=== PATIENT | female | born 1985 | race Caucasian/White ===

== ENCOUNTER 2017-04-09 11:11 | Outpatient (CLI) | payer BC, OTHER ==
[~2017-04-09 11:11] MED LIST: BCPILLS PO
[2017-04-09] MEDS ORDERED: ACETAMINOPHEN/CODEINE 300/30MG TAB PO ONE (11:30)
[2017-04-09 12:10] LABS: BASO % 0.1 %; BASO ABS # 0.01 K/uL (0-0.2); COMPLETE YES; EOS % 0.5 %; HEMATOCRIT 34.7 % (37-47); IG% 0.3 %; LYMPH % 18.6 %; LYMPH ABS # 2.05 K/uL (1.2-3.4); MEAN CELL VOLUME 83.6 fL (80-100); MEAN CORPUSCULAR HEMOGLOBIN 28.2 pg (25-34); MEAN CORPUSCULAR HGB CONC 33.7 g/dl (32-36); MONO % 5.3 %; NEUT % 75.2 %; PLATELET COUNT 342 K/uL (130-400); RED BLOOD COUNT 4.15 M/uL (4.2-5.4)
[2017-04-09 12:40] LABS: ALT/SGPT 21 U/L (12-78); BLOOD UREA NITROGEN 5 mg/dl (7-18); BUN/CREATININE RATIO 9.8 (10-20); CALCIUM 8.9 mg/dl (8.5-10.1); CARBON DIOXIDE 20 mmol/L (21-32); CHLORIDE 108 mmol/L (98-107); CREATININE 0.53 mg/dl (0.60-1.20); GLUCOSE 97 mg/dl (70-99); POTASSIUM 3.7 mmol/L (3.5-5.1); SODIUM 139 mmol/L (136-145)
[2017-04-09 12:42] LABS: ALB/GLOB RATIO 0.6 (0.9-2); ALKALINE PHOSPHATASE 101 U/L (45-117); AST/SGOT 17 U/L (15-37)
[2017-04-09 13:27] LABS: URINE PROTIEN/CREAT RATIO 0.2 (0-0.2); URINE TOTAL PROTEIN 7.7 mg/dl (0-11.9)
--- NOTE | 2017-04-09 13:38 | Progress Note ---
Progress Note Date of Service Apr 09, 2017. Progress Note Outpatient Note 31 WF P0000 at 31 weeks seen in L&D for headache and elevated BP in office. Being treated for sinus infection currently with antibiotics. Seen here today with no contractions on monitor. FHT Cat 1. No RUQ pain and abdoment is soft and non-tender. No peripheral or facial edema. LABS Test 04/09/17 11:51 04/09/17 12:10 04/09/17 12:17 White Blood Count 11.00 Red Blood Count 4.15 Hemoglobin 11.7 Hematocrit 34.7 Mean Corpuscular Volume 83.6 Mean Corpuscular Hemoglobin 28.2 Mean Corpuscular Hemoglobin Concent 33.7 Platelet Count 342 Mean Platelet Volume 9.0 Neutrophils (%) (Auto) 75.2 Lymphocytes (%) (Auto) 18.6 Monocytes (%) (Auto) 5.3 Eosinophils (%) (Auto) 0.5 Basophils (%) (Auto) 0.1 Neutrophils # (Auto) 8.28 Lymphocytes # (Auto) 2.05 Monocytes # (Auto) 0.58 Eosinophils # (Auto) 0.05 Basophils # (Auto) 0.01 RDW Standard Deviation 39.7 RDW Coefficient of Variation 13.2 Immature Granulocyte % (Auto) 0.3 Immature Granulocyte # (Auto) 0.03 Sodium Level 139 Potassium Level 3.7 Chloride Level 108 Carbon Dioxide Level 20 Anion Gap 11.0 Blood Urea Nitrogen 5 Creatinine 0.53 Estimated GFR () 147.7 Estimated GFR (Non- 127.4 BUN/Creatinine Ratio 9.8 Random Glucose 97 Calcium Level 8.9 Total Bilirubin 0.2 Aspartate Amino Transferase (AST) 17 Alanine Aminotransferase (ALT) 21 Alkaline Phosphatase 101 Lactate Dehydrogenase 138 Total Protein 7.3 Albumin 2.6 Globulin 4.7 Albumin/Globulin Ratio 0.6 Urine Random Creatinine 39.0 Urine Random Total Protein 7.7 Urine Protein/Creatinine Ratio 0.2 Urine Color Pending Urine Appearance Pending Urine pH Pending Urine Specific Rector Pending Urine Protein Pending Urine Glucose (UA) Pending Urine Ketones Pending Urine Occult Blood Pending Urine Nitrite Pending Urine Bilirubin Pending Urine Urobilinogen Pending Urine Leukocyte Esterase Pending Asssesment: no PIH or gestational hypertension PLAN: continue antibiotics for sinus infection Follow up in office next week
[2017-04-09 13:40] LABS: URINE APPEARANCE CLEAR (CLEAR); URINE BILIRUBIN NEG (NEG); URINE COLOR YELLOW; URINE EPITHELIAL CELL AUTO >30 /lpf (0-5); URINE NITRITE NEG (NEG); URINE PH 7.5 (4.5-7.5); URINE SPECIFIC GRAVITY 1.013 (1.000-1.030); UROBILINOGEN NEG (NEG)
[2017-04-09 13:41] LABS: MANUAL MICROSCOPIC REQUIRED? NO; REVIEW REQ? NO; ZZUR CULT IF INDIC CLEAN CATCH NO
[2017-05-28] MEDS ORDERED: MTR600X PO (10:30)
== END 2017-04-09 13:45 | disposition home or self-care (01) ==
LOC: C.OPB 11:11 → C.LD 11:12 → C.OPB 13:45
PROVIDERS: ATTEND Obstetrics & Gynecology
DX: O99.89 Other specified diseases and conditions complicating pregnancy, childbirth and the puerperium (principal); R03.0 Elevated blood-pressure reading, without diagnosis of hypertension; J32.9 Chronic sinusitis, unspecified; O99.213 Obesity complicating pregnancy, third trimester; K76.0 Fatty (change of) liver, not elsewhere classified; D25.9 Leiomyoma of uterus, unspecified; Z3A.31 31 weeks gestation of pregnancy

== ENCOUNTER 2017-05-25 10:49 | Inpatient (IN) | payer BC ==
[~2017-05-25] VITALS: Ht 170.2 cm; Wt 130.0 kg
[2017-05-25 12:15] LABS: BASO % 0.1 %; BASO ABS # 0.01 K/uL (0-0.2); EOS % 0.4 %; HEMATOCRIT 36.8 % (37-47); IG% 0.5 %; LYMPH % 21.6 %; LYMPH ABS # 2.36 K/uL (1.2-3.4); MEAN CELL VOLUME 83.4 fL (80-100); MEAN CORPUSCULAR HEMOGLOBIN 28.3 pg (25-34); MEAN PLATELET VOLUME 10.1 fL (7.4-10.4); MONO % 6.6 %; NEUT % 70.8 %; PLATELET COUNT 309 K/uL (130-400); RED BLOOD COUNT 4.41 M/uL (4.2-5.4); WHITE BLOOD COUNT 10.92 K/uL (4.8-10.8)
[2017-05-25 12:20] LABS: COMPLETE YES
[2017-05-25 12:24] LABS: INR 0.9 (0.9-1.1); PROTHROMBIN TIME (PATIENT) 10.1 SECONDS (9.0-12.0)
[2017-05-25 12:43] LABS: ALT/SGPT 32 U/L (12-78); AST/SGOT 34 U/L (15-37); BLOOD UREA NITROGEN 8 mg/dl (7-18); BUN/CREATININE RATIO 10.1 (10-20); CALCIUM 9.9 mg/dl (8.5-10.1); CARBON DIOXIDE 20 mmol/L (21-32); CHLORIDE 106 mmol/L (98-107); CREATININE 0.78 mg/dl (0.60-1.20); GLUCOSE 97 mg/dl (70-99); SODIUM 138 mmol/L (136-145); URIC ACID 5.4 mg/dl (2.6-7.2)
[2017-05-25] MEDS: LABETALOL HCL 100 MG TAB PO SCH ×2 (13:57→20:10)
[2017-05-25] MEDS ORDERED: LACTATED RINGER'S 1000ML 500 ML IV ONE (13:59)
[2017-05-25] MEDS ORDERED: LABETALOL HCL IV 5 MG/ML 20ML IV PRN (15:30)
[2017-05-25] MEDS ORDERED: DINOPROSTONE 10 MG INSERT PV ONE (15:30)
--- NOTE | 2017-05-25 15:39 | History and Physical ---
History & Physical Date & Time of Service: May 25, 2017 at 15:31 Chief Complaint: Elevated Blood Pressure Primary Care Physician: Betsy Oro PA History of Present Illness Source: patient Patient is a 31 y/o @ 37.4 weeks was sent over from the office with elevated blood pressures in the range of 150's/90's. On arrival [facility] labs were wnl. Blood pressures remained elevated ranging from 140's-170's/90-110's with trace urine protein. She admits to having a mild headache but denies changes in vision or abdominal pain. She was given 1 dose of labetalol 100 mg PO with no improvement of her BP therefore the decision was made to admit the patient for induction. Will control BP with IV labetalol. Past Medical/Surgical History Medical Problems: (1) UTI (urinary tract infection) Status: Chronic Family History FHx: cancer FHx: diabetes FHx: hypertension Social History Smoking Status: Never Smoker Marital Status: single Housing status: lives with family Occupational Status: employed Multi-Drug Resistant Organisms History of MDRO: No Allergies Coded Allergies: Sulfamethoxazole w/Trimethoprim (Verified Allergy, Intermediate, RASH, 09/13/13) Home Medications Scheduled Control Pills ( Control Pills), 1 TAB PO DAILY Review of Systems Constitutional: No fever, No chills, No sweats, No weight loss, No weakness, No fatigue, No problem reported Respiratory: No cough, No sputum, No wheezing, No shortness of breath, No dyspnea on exertion, No dyspnea at rest, No hemoptysis, No problem reported Cardiovascular: No chest pain, No orthopnea, No PND, No edema, No claudication , No palpitations, No problem reported Abdomen: No pain, No nausea, No vomiting, No diarrhea, No constipation, No GI bleeding, No problem reported Genitourinary - Female: No dysuria, No urinary frequency, No urinary urgency, No urinary incontinence, No urinary retention, No hematuria, No dysmenorrhea, No menorrhagia, No metrorrhagia, No rash, No vaginal bleeding, No vaginal discharge, No vaginal itching, No vulvodynia, No , No problem reported Integumentary: No rash, No itch, No new/changing skin lesions, No color change , No bleeding, No problem reported Physical Exam General Appearance: WD/WN, no apparent distress Respiratory/Chest: chest non-tender, lungs clear Cardiovascular: regular rate, rhythm Abdomen/GI: normal bowel sounds, soft Genitourinary - Female: external genitalia normal Neurologic/Psych: alert, oriented x 3 Skin: normal color, warm/dry, no rash Diagnostics Laboratory Results Results Past 24 Hours Test 05/25/17 11:52 Range/Units White Blood Count 10.92 4.8-10.8 K/uL Red Blood Count 4.41 4.2-5.4 M/uL Hemoglobin 12.5 12.0-16.0 g/dL Hematocrit 36.8 37-47 % Mean Corpuscular Volume 83.4 80-100 fL Mean Corpuscular Hemoglobin 28.3 25-34 pg Mean Corpuscular Hemoglobin Concent 34.0 32-36 g/dl Platelet Count 309 130-400 K/uL Mean Platelet Volume 10.1 7.4-10.4 fL Neutrophils (%) (Auto) 70.8 % Lymphocytes (%) (Auto) 21.6 % Monocytes (%) (Auto) 6.6 % Eosinophils (%) (Auto) 0.4 % Basophils (%) (Auto) 0.1 % Neutrophils # (Auto) 7.74 1.4-6.5 K/uL Lymphocytes # (Auto) 2.36 1.2-3.4 K/uL Monocytes # (Auto) 0.72 0.11-0.59 K/uL Eosinophils # (Auto) 0.04 0-0.5 K/uL Basophils # (Auto) 0.01 0-0.2 K/uL RDW Standard Deviation 43.6 36.4-46.3 fL RDW Coefficient of Variation 14.3 11.5-14.5 % Immature Granulocyte % (Auto) 0.5 % Immature Granulocyte # (Auto) 0.05 0.00-0.02 K/uL Prothrombin Time 10.1 9.0-12.0 SECONDS Prothromb Time International Ratio 0.9 0.9-1.1 Activated Partial Thromboplast Time 26.8 21.0-31.0 SECONDS Partial Thromboplastin Ratio 1.0 Sodium Level 138 136-145 mmol/L Potassium Level 4.0 3.5-5.1 mmol/L Chloride Level 106 98-107 mmol/L Carbon Dioxide Level 20 21-32 mmol/L Anion Gap 12.0 3-11 mmol/L Blood Urea Nitrogen 8 7-18 mg/dl Creatinine 0.78 0.60-1.20 mg/dl Estimated GFR () 118.2 Estimated GFR (Non- 102.0 BUN/Creatinine Ratio 10.1 10-20 Random Glucose 97 70-99 mg/dl Uric Acid 5.4 2.6-7.2 mg/dl Calcium Level 9.9 8.5-10.1 mg/dl Aspartate Amino Transf (AST/SGOT) 34 15-37 U/L Alanine Aminotransferase (ALT/SGPT) 32 12-78 U/L Lactate Dehydrogenase 177 84-246 U/L Impression Assessment and Plan Mild preeclampsia at 37.4 weeks -PIH labs normal -Will begin IV labetalol -Cervidil 10 mg Intravaginally VTE Prophylaxis VTE Risk Assessment Done? Y/N: Yes Risk Level: Low
[2017-05-25] MEDS ORDERED: CALC500C3 (16:25)
[2017-05-25] MEDS ORDERED: PRENTAB26 PO (16:25)
[2017-05-25 16:29] VITALS: Ht 170.2 cm; Wt 130.0 kg
[2017-05-25] MEDS ORDERED: ACETAMINOPHEN 500 MG TAB PO ONE (17:57)
[2017-05-25] MEDS ORDERED: NURSING VERBAL MED ORDER ONE ×2 (18:00→19:45)
[2017-05-25] MEDS: LACTATED RINGER'S 1000ML 1,000 ML IV SCH (18:31)
[2017-05-25] MEDS ORDERED: CALCIUM CARBONATE 500 MG CHEWABLE PO PRN (20:00)
[2017-05-26] MEDS ORDERED: NURSING VERBAL MED ORDER ONE ×4 (00:15→02:45)
[2017-05-26] MEDS ORDERED: ACETAMINOPHEN 500 MG TAB PO ONE (00:30)
[2017-05-26] MEDS ORDERED: RANITIDINE HCL 150 MG TAB PO ONE (00:30)
[2017-05-26] MEDS: LABETALOL HCL 200 MG TAB PO SCH ×4 (00:36→20:18)
[2017-05-26] MEDS: LACTATED RINGER'S 1000ML 1,000 ML IV SCH ×3 (01:33→10:32)
[2017-05-26] MEDS ORDERED: MISOPROSTOL 25 MCG TAB PO ONE (03:00)
[2017-05-26] MEDS ORDERED: FENTANYL CITRATE INJ 50 MCG/1 ML 2 ML VIAL ONE (06:11)
[2017-05-26] MEDS ORDERED: BUPIVACAINE 0.25% 30 ML VIAL ONE (06:11)
[2017-05-26] MEDS ORDERED: EpHEDrine SULFATE INJ 50 MG/ML AMP ONE (06:11)
[2017-05-26] MEDS ORDERED: FENTANYL 2MCG/ML ROPIV 1.25MG/ML 100ML BAG EPI ONE (06:11)
[2017-05-26] MEDS ORDERED: NALOXONE HCL INJ 1 MG in SODIUM CHLORIDE 0.9% 1000ML 1,000 ML IV PRN (06:41)
[2017-05-26] MEDS ORDERED: LACTATED RINGER'S 1000ML 500 ML IV PRN ×2 (06:41→11:15)
[2017-05-26] MEDS ORDERED: FENTANYL 2MCG/ML ROPIV 1.25MG/ML 100ML BAG EPI PRN (06:45)
[2017-05-26] MEDS ORDERED: NALBUPHINE HCL INJ 10 MG/ML AMP IV PRN (06:45)
[2017-05-26] MEDS ORDERED: EpHEDrine SULFATE INJ 50 MG/ML AMP IV PRN (06:45)
[2017-05-26] MEDS ORDERED: NALOXONE HCL 0.4 MG/1 ML VIAL/CARP IV PRN (06:45)
[2017-05-26] MEDS ORDERED: DiphenhydrAMINE HCL 50 MG/ML VIAL IV PRN (06:45)
[2017-05-26] MEDS ORDERED: OXYTOCIN 30 UNITS/500ML NSS IV ONE (10:13)
[2017-05-26] MEDS ORDERED: OXYTOCIN 30 UNITS/500ML NSS IV PRN ×2 (11:15→13:45)
[2017-05-26] MEDS ORDERED: LACTATED RINGER'S 1000ML 1,000 ML IV ONE (13:42)
[2017-05-26] MEDS ORDERED: OXYCODONE/ACETAMINOPHEN 5-325 TAB PO PRN (13:45)
[2017-05-26] MEDS ORDERED: SUPERCREAM 0.870 % 15GM JAR EXT PRN (13:45)
[2017-05-26] MEDS ORDERED: LANOLIN OINT EXT PRN ×2 (13:45)
[2017-05-26] MEDS ORDERED: HYDROCORTISONE ACETATE 25 MG SUPP PR PRN (13:45)
[2017-05-26] MEDS ORDERED: BENZOCAINE 20% AER SPR 82.5 GM CAN EXT PRN (13:45)
[2017-05-26] MEDS ORDERED: ACETAMINOPHEN 325 MG TAB PO PRN (13:45)
[2017-05-26] MEDS ORDERED: ACETAMINOPHEN/CODEINE 300/30MG TAB PO PRN ×2 (13:45)
--- NOTE | 2017-05-26 13:49 | Vaginal Delivery Summary ---
Vaginal Delivery Summary Delivery Note live female DAQUAN over intact perineum with nuchal cord x1 reduced on perineum. Delayed cord clamping followed by cord blood and spontaneous delivery of placenta. No tears. EBL 250 ml. Final sponge and instrument count are correct. Mom and baby stable
--- NOTE | 2017-05-26 14:27 | Anesthesia Procedure Note ---
Anesthesia Epidural Removal Nt Date & Time May 26, 2017 at 14:26 Vital Signs Pain Intensity: 0.0 Notes Mental Status: alert / awake / arousable, participated in evaluation Nausea / Vomiting: adequately controlled Pain: adequately controlled Airway Patency, RR, SpO2: stable & adequate BP & HR: stable & adequate Hydration State: stable & adequate Neuraxial Anesthesia: was administered Anesthetic Complications: no major complications apparent, pt satisfied with anesthetic care Epidural: removed without complications, with tip intact
[2017-05-26 16:45] VITALS: BP 125/85; PULSE 88; TEMP 36.6
[2017-05-26 20:10] VITALS: BP 147/95; PULSE 89; TEMP 36.6
[2017-05-26] MEDS: DOCUSATE SODIUM 100 MG CAP PO SCH (20:17)
[2017-05-26 23:45] VITALS: BP 127/81; PULSE 93; TEMP 36.5
[2017-05-27 03:20] VITALS: BP 147/92; PULSE 88; TEMP 36.6
[2017-05-27 05:09] LABS: HEMATOCRIT 31.6 % (37-47); MEAN CELL VOLUME 84.7 fL (80-100); MEAN CORPUSCULAR HEMOGLOBIN 27.9 pg (25-34); MEAN PLATELET VOLUME 9.8 fL (7.4-10.4); PLATELET COUNT 276 K/uL (130-400); RED BLOOD COUNT 3.73 M/uL (4.2-5.4); WHITE BLOOD COUNT 15.44 K/uL (4.8-10.8)
[2017-05-27 05:13] LABS: MEAN CORPUSCULAR HGB CONC 32.9 g/dl (32-36)
[2017-05-27 07:30] VITALS: BP 134/88; PULSE 81; TEMP 36.6
[2017-05-27] MEDS: LABETALOL HCL 200 MG TAB PO SCH ×3 (07:59→19:58)
[2017-05-27] MEDS: DOCUSATE SODIUM 100 MG CAP PO SCH ×2 (07:59→19:58)
[2017-05-27] MEDS: FERROUS SULFATE 325 MG TAB PO SCH (07:59)
[2017-05-27] MEDS: PRENATAL VITAMIN TAB PO SCH (07:59)
[2017-05-27] MEDS: IBUPROFEN 600 MG TAB PO PRN ×3 (08:00→23:32)
[2017-05-27] MEDS ORDERED: MEASLES, MUMPS & RUBELLA VIRUS VIAL SQ. ONE (08:00)
[2017-05-27] MEDS ORDERED: DIPHTHERIA/TETANUS/PERTUSSIS 0.5 ML SYR/VIAL IM. ONE (08:00)
[2017-05-27 12:00] VITALS: BP 125/85; PULSE 80; TEMP 36.4
--- NOTE | 2017-05-27 13:13 | OB/GYN Progress Note ---
[employer] Progress Note Date of Service May 27, 2017. Subjective conversation w/ patient, physical exam Ambulation: ambulating normally Voiding: no voiding problems Passing Gas: Yes Diet Tolerance: Regular Diet Lochia: Moderate Feeding Type: Breast Feeding Pain: 4/10 Notes: Doing well, no concerns. Pain well controlled. Tolerating regular diet. Ambulating without difficulty. Denies WANG or changes in vision. Objective Vital Signs Date Time Temp Pulse Resp B/P (MAP) Pulse Ox O2 Delivery O2 Flow Rate FiO2 05/27/17 12:00 36.4 80 18 125/85 (98) Room Air 05/27/17 07:30 36.6 81 18 134/88 (103) Room Air 05/27/17 07:30 Room Air 05/27/17 03:20 36.6 88 20 147/92 (110) Room Air 05/26/17 23:45 Room Air 05/26/17 23:45 36.5 93 20 127/81 (96) Room Air 05/26/17 20:10 36.6 89 20 147/95 (112) Room Air 05/26/17 16:45 36.6 88 20 125/85 (98) Room Air Physical Exam General Appearance: WELL-APPEARING Respiratory/Chest: chest non-tender, lungs clear Cardiovascular: regular rate, rhythm Abdomen: normal bowel sounds, soft Fundus: Firm Extremities: normal range of motion, non-tender, no calf tenderness Laboratory Results Last 24 Hours Test 05/27/17 04:57 White Blood Count 15.44 K/uL Red Blood Count 3.73 M/uL Hemoglobin 10.4 g/dL Hematocrit 31.6 % Mean Corpuscular Volume 84.7 fL Mean Corpuscular Hemoglobin 27.9 pg Mean Corpuscular Hemoglobin Concent 32.9 g/dl RDW Standard Deviation 45.3 fL RDW Coefficient of Variation 14.8 % Platelet Count 276 K/uL Mean Platelet Volume 9.8 fL Nucleated RBC Absolute Count (auto) 0.04 K/uL Nucleated Red Blood Cells % 0.2 % Assessment and Plan Post- Day Number: 1 Continue Routine Care: -BP's stable -Continue routine care -Anticipate d/c home tomorrow.
[2017-05-27 16:00] VITALS: BP 129/89; PULSE 85; TEMP 36.6
[2017-05-27 19:55] VITALS: BP 127/85
[2017-05-27] MEDS ORDERED: BISACODYL 5 MG TABEC PO SCH (20:00)
[2017-05-27 23:25] VITALS: BP 139/91; PULSE 96; TEMP 36.7
[2017-05-28] MEDS ORDERED: BISACODYL 10 MG SUPP PR PRN (07:00)
[2017-05-28 07:23] VITALS: BP 137/83; PULSE 74; TEMP 36.6; O2SAT 96
[2017-05-28] MEDS: DOCUSATE SODIUM 100 MG CAP PO SCH (07:40)
[2017-05-28] MEDS: PRENATAL VITAMIN TAB PO SCH (07:40)
[2017-05-28] MEDS: FERROUS SULFATE 325 MG TAB PO SCH (07:40)
[2017-05-28] MEDS: LABETALOL HCL 200 MG TAB PO SCH ×2 (07:40→15:00)
[2017-05-28] MEDS ORDERED: MTR600X PO (10:30)
--- NOTE | 2017-05-28 10:32 | Discharge Instructions ---
Discharge Instructions Date of Service May 28, 2017. Admission Reason for Admission: Elevated Blood Pressure Discharge Discharge Diagnosis / Problem: term delivered Discharge Goals Goal(s): Routine recovery after delivery Activity Recommendations Activity Limitations: as noted below Lifting Limitations: no more than 10 pounds Exercise/Sports Limitations: gradually increase as tolerated May Resume Sexual Activity: when tolerated, after follow-up appointment Shower/Bathe: no limitations Driving or Machine Use: resume 3 days after discharge . Instructions / Follow-Up Instructions / Follow-Up ACTIVITY RECOMMENDATIONS: * Gradual return to full activity over the next 2-3 weeks. * No lifting - nothing heavier than baby over the next 2-3 weeks. * Do not engage in vigorous exercise, sexual activity or sports until cleared by your physician. * Do not drive or operate any motorized equipment until cleared by your physician. * You may shower/bathe daily. BREAST CARE: If you are not breast feeding: * Wear a supportive bra 24 hours a day for one to two weeks. * Avoid stimulating your breasts and nipples as much as possible during the first few weeks after delivery. * When taking a shower, have the warm water hit your back, not breasts. * When your breasts feel full, apply ice packs. Usually three to four times a day helps ease the discomfort. * Take a mild pain medication (Tylenol/Motrin) when you are uncomfortable. If breast feeding: * Use breast milk to lubricate nipples. Lansinoh cream may be used for sore nipples. You do not need to remove cream prior to breast feeding. If using a different brand of cream, check the label for directions regarding removal of cream prior to nursing. * Wear a supportive bra. * If having problems with breasts or breast feeding, call a work and family life consultant or your health care provider. EPISIOTOMY CARE: After delivery, if you have an episiotomy (stitches), the following steps will ease discomfort and aid healing. * For the first 24 hours after delivery, place ice packs next to your episiotomy to help reduce swelling. * After the first 24 hour-period, sitz baths, either portable or in the tub, are suggested. A shower with a shower arm sprayed over the episiotomy may be comforting. * [place] care should be done after each voiding and bowel movement. Squirt warm water from a plastic bottle over the perineum (region of the body between the anus and urinary opening) and pat dry. * Use Dermoplast to ease discomfort. Shake container. [place] directly over the episiotomy. * Place a Tucks on a clean sanitary pad next to your episiotomy. OVER THE COUNTER MEDICATION: * For discomfort or pain, you may use Acetaminophen (Tylenol), Ibuprofen (Advil ), or Naproxen (Aleve) following the package directions. * For constipation you may use Colace following the package directions. SPECIAL CARE INSTRUCTIONS: When you are discharged from the hospital, it is important for you to follow the instructions listed below: * During the first week at home, you should be able to care for yourself and your baby. In addition, the usual light household activities are encouraged. * Limit your activities to the way you feel. Do not try to clean the house or move furniture. Be sensible. * If you actively engage in sports and have done so up until the time of your delivery, you may resume these activities as soon as you feel able. This may take up to one month or even longer. Use good judgment. * Continue to take your vitamins for at least six weeks after the of your baby. * Your diet need not be limited unless you were on a special diet before your delivery. Breast-feeding mothers need around 2500 calories per day and at least 64-80 ounces of fluid per day (8 to 10 glasses). * You should eat foods from the four major food groups. Crash diets or fad diets are to be avoided. Eating lean meats, fresh fruits and vegetables, low-fat dairy products, high fiber foods and a regular exercise program, will help you get back to your pre- weight without putting your health at risk. * Constipation is sometimes a problem after delivery. Take a mild laxative as needed. If breast feeding, Milk of Magnesia is acceptable to use. You may use a suppository or Fleets enema if no episiotomy. * A daily shower or tub bath is suggested. Be sure to thoroughly and gently dry the perineum. * A bloody vaginal discharge will usually continue until around four weeks post . A small amount of bleeding may continue for as long as six weeks. Vaginal discharge changes from the bright red bleeding after delivery to pink then brownish and finally yellowish-pink before becoming white and disappearing. * Bleeding may increase with activity. Your first period may come in 4-8 weeks. If you are breast feeding, your period may be delayed even longer. * [place] (sex) can begin whenever both you and your partner feel comfortable and do not have any form of genital infection. It is recommended that you wait until after your return appointment and discuss with your physician. If you have questions, please talk to your health care practitioner. A condom should be used to prevent infection and . * Foreplay, gentle intercourse and lubrication is very important the first several times to prevent pain. A water-based lubricant such as K-Y jelly or Astroglide may be used. * Tampons may be used six weeks after delivery. * Douching should be avoided for 6 weeks after delivery. * If you have RH negative blood and your baby is RH positive, you will receive RHOGAM by injection prior to discharge. The nurse will give you a card to keep with you that has the date and place that you received RHOGAM after delivery. * During your care, you had a Rubella screen done to check for the presence of rubella antibodies in your blood. If your test was negative, you will receive a Rubella vaccine prior to discharge. This vaccine may cause a fever, soreness at the injection site and flu-like symptoms. If these symptoms persist, notify your health care practitioner. is not advised for three months after a Rubella vaccine. There is a higher chance of having a baby with defects if conceived within three months of getting the vaccine. * If you were discharged 24 hours from delivery or before 48 hours: Visiting nurses will come to your home 48 hours after discharge to assess you and your baby. The visiting nurse will meet with you while you are in the hospital to arrange a time and get directions to your home. * Verbalizes understanding of car seat law as reviewed with patient nursing. * Car Seat hand-out given and reviewed with patient by nursing. * Shaken baby information reviewed with patient by nursing. Call you doctor if: * Heavy bleeding (saturating several pads an hour) or passing clots the size of your fist. * A fever >101 degrees F (38.3 degrees C) on two occasions four hours apart and/or chills. * Unusual pain in the pelvic or vaginal areas. * "Baby Blues" lasting longer than two weeks. If you have any questions or concerns, call your health care practitioner at . FOLLOW-UP VISIT: * Please call the office at to schedule a 6 week examination. It is important you keep this appointment. * It is important for you to make arrangements for either yearly or twice yearly check-ups thereafter. Current Hospital Diet Patient's current hospital diet: Regular OB Diet Discharge Diet Recommended Diet: Regular OB Diet Fluid Restriction: None Pending Studies Studies pending at discharge: no Medical Emergencies . Who to Call and When: Medical Emergencies: If at any time you feel your situation is an emergency, please call 911 immediately. . Non-Emergent Contact Non-Emergency issues call your: Primary Care Provider . . "Provider Documentation" section prepared by Blayne Cifuentes. . VTE Core Measure Inpt VTE Proph given/why not?: Treatment not indicated
--- NOTE | 2017-05-28 10:33 | OB/GYN Progress Note ---
[employer] Progress Note Date of Service May 28, 2017. Subjective conversation w/ patient, physical exam Ambulation: ambulating normally Voiding: no voiding problems Passing Gas: Yes Diet Tolerance: Regular Diet Lochia: Small Feeding Type: Breast Feeding Objective Vital Signs Date Time Temp Pulse Resp B/P (MAP) Pulse Ox O2 Delivery O2 Flow Rate FiO2 05/28/17 07:23 36.6 74 20 137/83 (101) 96 Room Air 05/28/17 07:15 Room Air 05/27/17 23:25 36.7 96 18 139/91 (107) Room Air 05/27/17 23:25 Room Air 05/27/17 19:55 127/85 (99) 05/27/17 16:00 Room Air 05/27/17 16:00 36.6 85 18 129/89 (102) Room Air 05/27/17 12:00 36.4 80 18 125/85 (98) Room Air Physical Exam General Appearance: WELL-APPEARING, NO APPARENT DISTRESS Abdomen: non tender, soft Fundus: Firm Extremities: non-tender, normal inspection, no pedal edema Assessment and Plan Post- Day Number: 2 Continue Routine Care: discharged
[2017-05-28 16:42] VITALS: BP_DIAS 83; PULSE 74; TEMP 36.6
== END 2017-05-28 16:45 | disposition home or self-care (01) | DRG 775 ==
LOC: C.LD 10:49 → C.OPB 10:49 → C.LD 15:26 → C.OBG 05-26 15:30
PROVIDERS: ADMIT Obstetrics & Gynecology; ATTEND Obstetrics & Gynecology
PROC: 3E0P7GC Introduction of Other Therapeutic Substance into Female Reproductive, Via Natural or Artificial Opening (ICD-10-PCS; principal; 2017-05-25)
PROC: 10E0XZZ Delivery of Products of Conception, External Approach (ICD-10-PCS; 2017-05-26)
DX: O14.04 Mild to moderate pre-eclampsia, complicating childbirth (principal); O69.81X0 Labor and delivery complicated by cord around neck, without compression, not applicable or unspecified; Z37.0 Single live birth; Z3A.37 37 weeks gestation of pregnancy

== ENCOUNTER 2020-07-18 07:33 | Inpatient (IN) ==
[2020-07-18] MEDS ORDERED: DINOPROSTONE 10 MG INSERT PV ONE (10:10)
[2020-07-18] MEDS ORDERED: OXYTOCIN 30 UNITS/500 ML BAG IV PRN (10:10)
[2020-07-18 10:30] LABS: Hematocrit (blood only) 38.3 % (37-47); Hemoglobin 12.6 g/dL (12.0-16.0); Mean Corpuscular Hemoglobin 27.3 pg (25-34); Mean Corpuscular Volume 83.1 fL (80-100); Platelet Count 307 K/uL (130-400); RDW Coefficient of Variation 14.3 % (11.5-14.5); RDW Standard Deviation 43.3 fL (36.4-46.3); Red Blood Count 4.61 M/uL (4.2-5.4); White Blood Count 11.29 K/uL (4.8-10.8)
[2020-07-18 10:33] LABS: Mean Corpuscular Hgb Conc 32.9 g/dL (32-36)
--- NOTE | 2020-07-18 10:53 | Obstetrical Progress Note ---
Date of Service July 18, 2020 Assessment & Plan Admission and Anticipated Discharge Date Admission Date: July 18, 2020 Subjective Admit Note 34 F P1001 at 38 weeks admitted for induction of labor for obesity and chronic hypertension and GDM on insulin started in third trimester well controlled. GBS is negative. Covid is negative. FHT Cat 1. No contractions. Cervix is closed/50/-3/vertex/posterior/intact. Cervidil 10 mg placed vaginally for cervical ripening. EFW 7 lbs. Anticipate normal delivery. Physical Exam Constitutional: WD/WN, vitals as above comfortable Results & Data ([facility]) Vital Signs (Past 12 Hours) Vital Signs Temp Pulse Resp BP Pulse Ox 07/18/20 08:18 101 H 98 07/18/20 08:16 37.1 C 103 H 20 133/82 07/18/20 08:13 111 H 98 07/18/20 08:08 110 H 98 07/18/20 08:03 116 H 98 07/18/20 07:58 111 H 155/98 H 98
[2020-07-18] MEDS: CALCIUM CARBONATE 500 MG CHEWABLE TAB PO PRN (21:29)
[2020-07-19] MEDS: miSOPROStoL 50 MCG TAB PO SCH ×2 (01:28→09:32)
[2020-07-19] MEDS: CALCIUM CARBONATE 500 MG CHEWABLE TAB PO PRN ×4 (01:28→17:52)
[2020-07-19] MEDS ORDERED: NIFEdipine EXTENDED REL 30 MG TABCR PO STA (08:06)
[2020-07-19] MEDS ORDERED: OXYTOCIN 30 UNITS/500 ML BAG IV PRN (08:11)
--- NOTE | 2020-07-19 08:20 | History & Physical Report ---
Date of Service July 19, 2020 Assessment & Plan (1) Elevated blood pressure affecting in third trimester, antepartum: Patient is a 34-year-old -0-0-1 at 38 weeks and 2 days of gestation who was admitted yesterday for induction of labor due to history of chronic hypertension, GDM A2, obesity. Blood pressures are borderline elevated, will start Procardia. Afebrile, heart rate reassuring. Cervix is favorable, plan to start low-dose Pitocin and AROM when able. We will continue to monitor and anticipate . All questions were answered (2) Gestational diabetes mellitus (GDM): (3) Obesity affecting in third trimester, antepartum: Admission and Anticipated Discharge Date Admission Date: July 18, 2020 History of Present Illness Primary Care Provider: Betsy Oro PA-C Patient is a 34-year-old -0-0-1 at 38.2 weeks of gestation who was admitted yesterday for induction of labor due to history of chronic hypertension, GDM A2, morbid obesity. She received Cervidil intravaginal and then 1 dose of p.o. Cytotec for cervical ripening. She has been feeling mild contractions. She denies leakage of fluid or vaginal bleeding, she denies fever chills headaches change in her vision, nausea vomiting. She reports good movements. Her has been complicated by 1) morbid obesity, last ultrasound by [facility] was done on July 10 and estimated weight was 3100 g. 2) GDMA2, on insulin, 34 U at night 3) History of chronic hypertension, on Procardia 30 mg XL. GBS negative, coronavirus negative. Allergies Allergy/AdvReac Type Severity Reaction Status Date / Time sulfamethoxazole Allergy Intermediate RASH Verified 07/18/20 09:47 trimethoprim Allergy Intermediate RASH Verified 07/18/20 09:47 lisinopril AdvReac Headache Verified 07/18/20 09:50 Home Medications Home Medications Medication Instructions Recorded Confirmed Type aspirin 81 mg PO DAILY 06/19/20 07/18/20 History insulin detemir U-100 [Levemir 34 unit SUBCUT HS 06/19/20 07/18/20 History Flexpen] nifedipine 30 mg PO DAILY 06/19/20 07/18/20 History 818-[id number] 1 cap PO DAILY 06/19/20 07/18/20 History Patient History Medical History GERD (gastroesophageal reflux disease) Gestational diabetes Hypertension Obesity Surgical History H/O arthroscopy of left knee History of laparoscopic cholecystectomy Social History Smoking Status: Never smoker Second Hand Exposure: No; Hx Alcohol Use: No Hx Substance Use: No Preferred Language: Persian Communication Ability: Effective Beliefs That Will Affect Care: None marital status: Current Living Situation: Spouse and Family Current Living Situation Comment: lives and daughter, stepson 16 yo partial Feels Safe at Home: Yes OB History , [employer] History No h/o STD's, no h/o Chlamydia/ GC/ HSV Review of Systems All systems reviewed & are unremarkable except as noted in HPI & below Physical Exam Constitutional: WD/WN, vitals as above well developed, well nourished and + obese Gastrointestinal (Abdomen): normal bowel sounds, soft, nontender, no hepatosplenomegaly (GRAVID, Chava 7-8 lb) Genitourinary: normal external appearance Manual OB Exam: + cervical dilation 3 cm, + cervical effacement 50% and + station high OB Exam Monitor Tracing: + category I Results & Data ([facility]) Vital Signs (Past 12 Hours) Vital Signs Temp Pulse Resp BP 07/19/20 08:03 86 141/92 H 07/19/20 07:53 93 H 137/100 07/19/20 07:42 36.7 C 90 20 143/97 H 07/19/20 06:06 95 H 124/90 07/19/20 06:05 36.7 C 18 07/19/20 02:39 86 143/77 H 07/19/20 02:38 36.5 C 93 H 16 142/94 H 07/18/20 22:44 92 H 135/87 07/18/20 22:43 36.7 C 18 07/18/20 22:42 90 144/91 H Laboratory Results Lab Results 07/18/20 07/18/20 07/18/20 Range/Units 10:19 10:41 13:48 WBC 11.29 H (4.8-10.8) K/uL RBC 4.61 (4.2-5.4) M/uL Hgb 12.6 (12.0-16.0) g/dL Hct 38.3 (37-47) % MCV 83.1 (80-100) fL MCH 27.3 (25-34) pg MCHC 32.9 (32-36) g/dL RDW Std Deviation 43.3 (36.4-46.3) fL RDW Coeff of Fatoumata 14.3 (11.5-14.5) % Plt Count 307 (130-400) K/uL MPV 9.0 (7.4-10.4) fL POC Glucose 80 114 H (70-99) mg/dl 07/18/20 07/18/20 07/19/20 Range/Units 17:15 21:32 07:45 WBC (4.8-10.8) K/uL RBC (4.2-5.4) M/uL Hgb (12.0-16.0) g/dL Hct (37-47) % MCV (80-100) fL MCH (25-34) pg MCHC (32-36) g/dL RDW Std Deviation (36.4-46.3) fL RDW Coeff of Fatoumata (11.5-14.5) % Plt Count (130-400) K/uL MPV (7.4-10.4) fL POC Glucose 76 89 92 (70-99) mg/dl Code Status & VTE Plan VTE Prophylaxis Plan VTE Prophylaxis will be ordered: No
[2020-07-19] MEDS: LACTATED RINGER'S 1,000 ML IV PRN ×4 (08:37→20:21)
[2020-07-19 08:47] LABS: Basophils # (auto) 0.01 K/uL (0-0.2); Basophils % (auto) 0.1 %; Eosinophils # (auto) 0.02 K/uL (0-0.5); Eosinophils % (auto) 0.2 %; Hematocrit (blood only) 36.7 % (37-47); Hemoglobin 12.4 g/dL (12.0-16.0); Immature Granulocytes # (auto) 0.04 K/uL (0.00-0.02); Immature Granulocytes % (auto) 0.4 %; Lymphocytes # (auto) 1.92 K/uL (1.2-3.4); Lymphocytes % (auto) 17.8 %; Mean Corpuscular Hgb Conc 33.8 g/dL (32-36); Mean Corpuscular Volume 82.8 fL (80-100); Mean Platelet Volume 9.1 fL (7.4-10.4); Monocytes # (auto) 0.54 K/uL (0.11-0.59); Neutrophils # (auto) 8.25 K/uL (1.4-6.5); Neutrophils % (auto) 76.5 %; Platelet Count 301 K/uL (130-400); RDW Coefficient of Variation 14.2 % (11.5-14.5); RDW Standard Deviation 42.8 fL (36.4-46.3); Red Blood Count 4.43 M/uL (4.2-5.4); White Blood Count 10.78 K/uL (4.8-10.8)
[2020-07-19 09:05] LABS: Albumin Level 2.7 gm/dl (3.4-5.0); BUN Creatinine Ratio 14.1 (10-20); Calcium 9.3 mg/dl (8.5-10.1); Creatinine Clr Calc Pharmacy 189.7 ml/min; Est GFR (African American) 138.8; Est GFR (Non-African American) 119.8; Potassium 3.9 mmol/L (3.5-5.1)
[2020-07-19 09:08] LABS: Albumin Globulin Ratio 0.6 (0.9-2); Bilirubin,Total 0.4 mg/dl (0.2-1); Globulin 4.9 gm/dl (2.5-4.0); Total Protein 7.6 gm/dl (6.4-8.2)
[2020-07-19] MEDS ORDERED: Nursing to Pharmacy Communication SCH ×2 (09:45→22:15)
[2020-07-19] MEDS ORDERED: NALOXONE HCL 0.4 MG/1 ML VIAL/CARP IV PRN (14:35)
[2020-07-19] MEDS ORDERED: ONDANSETRON INJ 2 MG/ML 2 ML VIAL IV PRN (14:35)
[2020-07-19] MEDS ORDERED: diphenhydrAMINE 50 MG/ML VIAL IV PRN (14:35)
[2020-07-19] MEDS ORDERED: NALOXONE HCL 1 MG in SODIUM CHLORIDE 0.9% 1000ML 1,000 ML IV PRN (14:35)
[2020-07-19] MEDS ORDERED: ePHEDrine sulfate 50 MG/ML AMP IV PRN (14:35)
--- NOTE | 2020-07-19 14:37 | Anesthesiology Consultation ---
Date of Service July 19, 2020 Assessment & Plan (1) Encounter for pre-operative examination: Chart Review Chart Review: Patient NOT seen in Pre Admission Testing and Acceptable Risk for Labor Epidural Consults Requested none History Height/Weight Height: 5 ft 7 in Weight: 132.903 kg Allergies Allergy/AdvReac Type Severity Reaction Status Date / Time sulfamethoxazole Allergy Intermediate RASH Verified 07/18/20 09:47 trimethoprim Allergy Intermediate RASH Verified 07/18/20 09:47 lisinopril AdvReac Headache Verified 07/18/20 09:50 Medications Home Medications Medication Instructions Recorded Confirmed Last Taken aspirin 81 mg PO DAILY 06/19/20 07/18/20 07/18/20 06:30 insulin detemir U-100 [Levemir 34 unit SUBCUT HS 06/19/20 07/18/20 07/17/20 Flexpen] nifedipine 30 mg PO DAILY 06/19/20 07/18/20 07/18/20 06:30 [id number] 1 cap PO DAILY 06/19/20 07/18/20 07/18/20 Active Medications Generic Name Dose Route Start Last Admin Trade Name Freq PRN Reason Stop Dose Admin Calcium Carbonate 500 mg 07/18/20 21:02 07/19/20 11:44 Calcium Carbonate 500 Mg Chewable Tab PO 08/17/20 21:01 500 mg Q2H PRN Administration Indigestion Lactated Ringer's 1,000 mls @ 125 mls/hr 07/18/20 10:10 07/19/20 14:56 Lr IV 07/20/20 10:09 999 mls/hr .Q8H PRN Infusion L&D Protocol Protocol Oxytocin 30 units in 500 mls @ 20 mls/hr 07/19/20 08:11 07/19/20 14:56 Pitocin IV 07/21/20 08:10 1.2 units/hr .Q24H PRN 20 mls/hr Labor Induction/Augmentation Titration Protocol 1.2 UNITS/HR Past Medical History Medical History GERD (gastroesophageal reflux disease) Gestational diabetes Hypertension Obesity Exercise / Class Metabolic Activity II 4-5 Yardwork/Stairs/Walk up hill Past Surgical History Surgical History H/O arthroscopy of left knee History of laparoscopic cholecystectomy Past Anesthesia History No Hx of Anesthesia Complications and No Family Hx of Anesthesia Complications History of PONV No Hx of PONV and No Hx of Motion Sickness Social History Smoking Status: Never smoker Do You Dip or Chew Tobacco: No Hx Alcohol Use: No Hx Substance Use: No Physical Exam Vital Signs Last Vital Signs Temp 36.8 C 07/19/20 14:00 Pulse 92 H 07/19/20 15:04 Resp 20 07/19/20 14:00 BP 130/69 07/19/20 15:04 Pulse Ox 94 07/19/20 15:04 Testing Laboratory Results 07/19/20 08:36 07/19/20 08:36 07/19/20 07/19/20 11:31 07:45 POC Glucose 80 92
[2020-07-19] MEDS ORDERED: fentaNYL citrate 100 MCG/2 ML VIAL ONE (14:41)
[2020-07-19] MEDS ORDERED: ePHEDrine sulfate 50 MG/ML AMP ONE (14:41)
[2020-07-19] MEDS ORDERED: BUPIVACAINE 0.25% 30 ML VIAL ONE ×2 (14:41→20:55)
[2020-07-19] MEDS ORDERED: fentaNYL 2MCG/ML ROPIVACAINE 1.25MG/ML 100 ML BAG EPI ONE (14:42)
[2020-07-19] MEDS: fentaNYL 2MCG/ML ROPIVACAINE 1.25MG/ML 100 ML BAG EPI PRN ×2 (15:15→22:11)
--- NOTE | 2020-07-19 20:56 | Obstetrical Progress Note ---
Date of Service July 19, 2020 Assessment & Plan Admission and Anticipated Discharge Date Admission Date: July 18, 2020 Subjective Patient has been pushing since 1830 with good efforts Head at +3 station, large caput FHR Categ I, except with head compression and decels to 90's with quick recovery and good variability Mom is exhausted and painful Plan to call anesthesia for bolus through epidural and let her rest for 15-2o minutes and then restart pushing Continue to monitor Results & Data ([facility]) Vital Signs (Past 12 Hours) Vital Signs Temp Pulse Resp BP Pulse Ox 07/19/20 20:50 98 H 96 07/19/20 20:45 101 H 83 L 07/19/20 20:40 105 H 95 07/19/20 20:35 130 H 97 07/19/20 20:30 107 H 98 07/19/20 20:25 109 H 98 07/19/20 20:20 137 H 98 07/19/20 20:15 123 H 99 07/19/20 20:10 95 H 99 07/19/20 20:08 36.3 C L 07/19/20 20:05 104 H 99 07/19/20 20:00 132 H 18 99 07/19/20 19:55 112 H 99 07/19/20 19:50 111 H 99 07/19/20 19:45 111 H 142/94 H 96 07/19/20 19:40 120 H 97 07/19/20 19:35 110 H 100 07/19/20 19:30 103 H 18 98 07/19/20 19:25 114 H 99 07/19/20 19:20 125 H 99 07/19/20 19:15 139 H 98 07/19/20 19:10 138 H 98 07/19/20 19:05 114 H 98 07/19/20 19:00 129 H 18 99 07/19/20 18:55 111 H 98 07/19/20 18:50 112 H 99 07/19/20 18:45 109 H 98 07/19/20 18:42 108 H 88 L 07/19/20 18:40 116 H 98 07/19/20 18:35 110 H 98 07/19/20 18:30 105 H 18 100 07/19/20 18:28 117 H 139/97 07/19/20 18:25 110 H 98 07/19/20 18:20 106 H 97 09/11/20 18:15 94 H 98 07/19/20 18:10 94 H 97 07/19/20 18:05 100 H 97 07/19/20 18:00 97 H 18 98 07/19/20 17:59 95 H 144/81 H 07/19/20 17:55 95 H 100 07/19/20 17:50 105 H 98 07/19/20 17:45 95 H 99 07/19/20 17:40 91 H 97 07/19/20 17:35 95 H 96 07/19/20 17:30 36.5 C 99 H 18 98 07/19/20 17:28 103 H 154/70 H 07/19/20 17:25 92 H 97 07/19/20 17:20 93 H 98 07/19/20 17:15 104 H 98 07/19/20 17:13 141/66 H 07/19/20 17:10 87 95 07/19/20 17:05 79 95 07/19/20 17:00 82 18 97 07/19/20 16:59 92 H 136/63 07/19/20 16:55 84 97 07/19/20 16:50 98 H 97 07/19/20 16:45 82 97 07/19/20 16:43 130/72 07/19/20 16:40 84 97 07/19/20 16:35 84 98 07/19/20 16:30 75 18 97 07/19/20 16:29 77 132/70 07/19/20 16:25 91 H 98 07/19/20 16:20 82 97 07/19/20 16:18 83 140/75 07/19/20 16:15 89 98 07/19/20 16:10 84 97 07/19/20 16:05 79 98 07/19/20 16:00 90 18 97 07/19/20 15:58 83 145/75 H 07/19/20 15:55 81 97 07/19/20 15:50 88 98 07/19/20 15:45 94 H 96 07/19/20 15:42 141/71 H 07/19/20 15:41 36.5 C 07/19/20 15:40 88 98 07/19/20 15:38 84 136/67 07/19/20 15:35 93 H 97 07/19/20 15:32 96 H 127/79 07/19/20 15:30 91 H 98 07/19/20 15:27 90 117/82 07/19/20 15:25 94 H 97 07/19/20 15:22 90 111/79 07/19/20 15:20 89 138/73 96 07/19/20 15:18 96 H 140/87 07/19/20 15:16 89 132/68 07/19/20 15:15 90 96 07/19/20 15:12 93 H 135/62 07/19/20 15:10 91 H 97 07/19/20 15:08 96 H 139/70 07/19/20 15:06 86 143/67 H 07/19/20 15:05 90 97 07/19/20 15:04 92 H 130/69 94 07/19/20 15:02 88 136/72 07/19/20 15:00 92 H 97 07/19/20 14:55 90 98 07/19/20 14:30 93 H 153/86 H 07/19/20 14:00 36.8 C 07/19/20 13:29 92 H 142/81 H 07/19/20 12:29 84 140/78 07/19/20 11:30 37.0 C 20 07/19/20 11:29 90 128/76 07/19/20 10:30 92 H 125/71 07/19/20 09:30 93 H 134/82
[2020-07-20] MEDS ORDERED: AZITHROMYCIN 500 MG in DEXTROSE 5% 250 ML IV STA (01:48)
[2020-07-20] MEDS: LACTATED RINGER'S 1,000 ML IV PRN (01:50)
[2020-07-20] MEDS ORDERED: CITRIC ACID/SODIUM CITRATE 15 ML UDC PO STA (01:55)
--- NOTE | 2020-07-20 01:55 | Obstetrical Progress Note ---
Date of Service July 20, 2020 Assessment & Plan Admission and Anticipated Discharge Date Admission Date: July 18, 2020 Subjective Patient received a bolus from her epidural and it to a while to get comfortable she then slept over 2 hours and wake up. She has not been feeling any pressure nor pain. Vaginal exam is unchanged head at the same station with large caput. Patient tried another push and heart rate had a prolonged deceleration. Pitocin was stopped, patient was placed in her left lateral side, IV bolus and nasal oxygen was started, heart rate recovered to 130s with good v ariability. After recovery patient pushed 1 more time and FHR had another Deceleration. Discussed with the patient that not progressed despite reaching over 3 hours, laboring down and intolerance to second stage with twitchings and recommended delivery. Patient agrees with the plan and she understands it is a major surgery with risks of bleeding infection, injury to surrounding organs like bowels, bladder, or ureter, blood transfusion, blood clots in legs and lungs, scarring and adhesion. Patient understand the risks and signed an informed consent, all questions were answered. Results & Data ([facility]) Vital Signs (Past 12 Hours) Vital Signs Temp Pulse Resp BP Pulse Ox 07/20/20 01:45 93 H 99 07/20/20 01:43 102 H 142/85 H 07/20/20 01:40 134 H 100 07/20/20 01:35 96 H 98 07/20/20 01:33 97 H 83 L 07/20/20 01:30 106 H 100 07/20/20 01:28 95 H 132/94 87 L 07/20/20 01:25 97 H 92 07/20/20 01:20 92 H 97 07/20/20 01:15 91 H 97 07/20/20 01:13 92 H 138/74 07/20/20 01:10 90 97 07/20/20 01:05 89 97 07/20/20 01:00 91 H 18 98 07/20/20 00:58 86 135/65 07/20/20 00:55 92 H 98 07/20/20 00:50 91 H 98 07/20/20 00:45 90 98 07/20/20 00:43 90 135/64 07/20/20 00:40 90 98 07/20/20 00:35 93 H 98 07/20/20 00:34 99 H 89 L 07/20/20 00:30 36.9 C 99 H 18 96 07/20/20 00:28 102 H 140/71 07/20/20 00:25 105 H 97 07/20/20 00:20 99 H 97 07/20/20 00:15 93 H 94 07/20/20 00:14 95 H 139/68 07/20/20 00:10 86 95 07/20/20 00:05 82 96 07/20/20 00:00 99 H 18 95 07/19/20 23:58 90 137/70 07/19/20 23:55 83 95 07/19/20 23:50 91 H 95 07/19/20 23:45 89 94 07/19/20 23:43 93 H 137/71 07/19/20 23:40 102 H 93 07/19/20 23:35 90 93 07/19/20 23:30 94 H 18 94 07/19/20 23:28 92 H 134/64 88 L 07/19/20 23:25 37.0 C 100 H 18 92 07/19/20 23:22 37.0 C 18 07/19/20 23:21 100 H 94 07/19/20 23:20 92 H 94 07/19/20 23:15 97 H 93 07/19/20 23:13 95 H 138/78 94 07/19/20 23:10 96 H 97 07/19/20 23:05 92 H 95 07/19/20 23:00 80 18 95 07/19/20 22:59 89 94 07/19/20 22:58 91 H 136/68 07/19/20 22:55 89 95 07/19/20 22:54 87 94 07/19/20 22:50 89 95 07/19/20 22:48 96 H 94 07/19/20 22:45 98 H 97 07/19/20 22:43 132/69 07/19/20 22:40 91 H 96 07/19/20 22:35 98 H 98 07/19/20 22:30 89 18 96 07/19/20 22:28 82 123/61 07/19/20 22:25 84 97 07/19/20 22:20 87 97 07/19/20 22:15 88 97 07/19/20 22:13 96 H 128/73 07/19/20 22:10 89 98 07/19/20 22:06 36.9 C 07/19/20 22:05 86 97 07/19/20 22:00 94 H 18 98 07/19/20 21:58 91 H 123/70 07/19/20 21:55 78 97 07/19/20 21:50 79 97 07/19/20 21:45 85 98 07/19/20 21:43 88 120/71 07/19/20 21:40 86 96 07/19/20 21:35 89 98 07/19/20 21:30 99 H 18 98 07/19/20 21:27 100 H 121/69 07/19/20 21:25 96 H 97 07/19/20 21:22 97 H 128/74 07/19/20 21:20 89 96 07/19/20 21:16 90 130/68 07/19/20 21:15 96 H 96 07/19/20 21:14 93 H 127/66 07/19/20 21:13 92 H 94 07/19/20 21:12 105 H 136/70 07/19/20 21:10 97 H 97 07/19/20 21:09 100 H 125/75 07/19/20 21:07 99 H 133/70 07/19/20 21:06 100 H 130/66 07/19/20 21:05 108 H 96 07/19/20 21:04 102 H 134/63 07/19/20 21:03 108 H 85 L 07/19/20 21:02 103 H 130/79 07/19/20 21:00 100 H 18 96 07/19/20 20:58 111 H 138/87 07/19/20 20:57 120 H 94 07/19/20 20:55 105 H 95 07/19/20 20:50 98 H 96 07/19/20 20:45 101 H 83 L 07/19/20 20:40 105 H 95 07/19/20 20:35 130 H 97 07/19/20 20:30 107 H 18 98 07/19/20 20:25 109 H 98 07/19/20 20:20 137 H 98 07/19/20 20:15 123 H 99 07/19/20 20:10 95 H 99 07/19/20 20:08 36.3 C L 07/19/20 20:05 104 H 99 09/11/20 20:00 132 H 18 99 07/19/20 19:55 112 H 99 07/19/20 19:50 111 H 99 07/19/20 19:45 111 H 18 142/94 H 96 07/19/20 19:40 120 H 97 07/19/20 19:35 110 H 100 07/19/20 19:30 103 H 18 98 07/19/20 19:25 114 H 99 07/19/20 19:20 125 H 99 07/19/20 19:15 139 H 98 07/19/20 19:10 138 H 98 07/19/20 19:05 114 H 98 07/19/20 19:00 129 H 18 99 07/19/20 18:55 111 H 98 07/19/20 18:50 112 H 99 07/19/20 18:45 109 H 98 07/19/20 18:42 108 H 88 L 07/19/20 18:40 116 H 98 07/19/20 18:35 110 H 98 07/19/20 18:30 105 H 18 100 07/19/20 18:28 117 H 139/97 07/19/20 18:25 110 H 98 07/19/20 18:20 106 H 97 07/19/20 18:15 94 H 98 07/19/20 18:10 94 H 97 07/19/20 18:05 100 H 97 07/19/20 18:00 97 H 18 98 07/19/20 17:59 95 H 144/81 H 07/19/20 17:55 95 H 100 07/19/20 17:50 105 H 98 07/19/20 17:45 95 H 99 07/19/20 17:40 91 H 97 07/19/20 17:35 95 H 96 07/19/20 17:30 36.5 C 99 H 18 98 07/19/20 17:28 103 H 154/70 H 07/19/20 17:25 92 H 97 07/19/20 17:20 93 H 98 07/19/20 17:15 104 H 98 07/19/20 17:13 141/66 H 07/19/20 17:10 87 95 07/19/20 17:05 79 95 07/19/20 17:00 82 18 97 07/19/20 16:59 92 H 136/63 07/19/20 16:55 84 97 07/19/20 16:50 98 H 97 07/19/20 16:45 82 97 07/19/20 16:43 130/72 07/19/20 16:40 84 97 07/19/20 16:35 84 98 07/19/20 16:30 75 18 97 07/19/20 16:29 77 132/70 07/19/20 16:25 91 H 98 07/19/20 16:20 82 97 07/19/20 16:18 83 140/75 07/19/20 16:15 89 98 07/19/20 16:10 84 97 07/19/20 16:05 79 98 07/19/20 16:00 90 18 97 07/19/20 15:58 83 145/75 H 07/19/20 15:55 81 97 07/19/20 15:50 88 98 07/19/20 15:45 94 H 96 07/19/20 15:42 141/71 H 07/19/20 15:41 36.5 C 07/19/20 15:40 88 98 07/19/20 15:38 84 136/67 07/19/20 15:35 93 H 97 07/19/20 15:32 96 H 127/79 07/19/20 15:30 91 H 98 07/19/20 15:27 90 117/82 07/19/20 15:25 94 H 97 07/19/20 15:22 90 111/79 07/19/20 15:20 89 138/73 96 07/19/20 15:18 96 H 140/87 07/19/20 15:16 89 132/68 07/19/20 15:15 90 96 07/19/20 15:12 93 H 135/62 07/19/20 15:10 91 H 97 07/19/20 15:08 96 H 139/70 07/19/20 15:06 86 143/67 H 07/19/20 15:05 90 97 07/19/20 15:04 92 H 130/69 94 07/19/20 15:02 88 136/72 07/19/20 15:00 92 H 97 07/19/20 14:55 90 98 07/19/20 14:30 93 H 153/86 H 07/19/20 14:00 36.8 C 20
[2020-07-20] MEDS ORDERED: LACTATED RINGER'S 1,000 ML IV SCH ×3 (02:00→04:00)
[2020-07-20] MEDS ORDERED: ONDANSETRON INJ 2 MG/ML 2 ML VIAL ONE (02:15)
[2020-07-20] MEDS ORDERED: OXYTOCIN 10 UNITS/ML VIAL ONE (02:15)
[2020-07-20] MEDS ORDERED: PHENYLEPHRINE 100MCG/ML 5ML SYR ONE (02:15)
[2020-07-20] MEDS ORDERED: LIDOCAINE/EPINEPHRINE 2% 1:200,000 20 ML SDV ONE (02:15)
[2020-07-20] MEDS ORDERED: MoRPHine SULFATE PF 1 MG/ML 10 ML AMP/VIAL ONE (03:06)
[2020-07-20] MEDS ORDERED: ePHEDrine sulfate 50 MG/ML AMP IV PRN (03:25)
[2020-07-20] MEDS ORDERED: LACTATED RINGER'S 500 ML IV PRN (03:25)
[2020-07-20] MEDS ORDERED: NALOXONE HCL 1 MG in SODIUM CHLORIDE 0.9% 1000ML 1,000 ML IV PRN (03:25)
[2020-07-20] MEDS ORDERED: NALOXONE HCL 0.08 MG in SYRINGE 1.8 ML IV PRN (03:25)
[2020-07-20] MEDS ORDERED: MoRPHine SULFATE 2 MG/ML CARP IV PRN (03:25)
[2020-07-20] MEDS ORDERED: MEPERIDINE HCL 25 MG/ML CARP/VIAL IV PRN (03:25)
[2020-07-20] MEDS ORDERED: NALOXONE HCL 0.4 MG/1 ML VIAL/CARP IV PRN (03:25)
[2020-07-20] MEDS ORDERED: ONDANSETRON INJ 2 MG/ML 2 ML VIAL IV PRN ×2 (03:25→21:26)
[2020-07-20] MEDS ORDERED: MoRPHine SULFATE PF 1 MG/ML 10 ML AMP/VIAL EPI ONE (03:25)
[2020-07-20] MEDS ORDERED: diphenhydrAMINE 50 MG/ML VIAL IV PRN ×2 (03:25→21:26)
[2020-07-20] MEDS ORDERED: NO NARCOTICS OR SEDATIVES SCH (03:30)
[2020-07-20] MEDS ORDERED: SODIUM CHLORIDE 0.9% 1000ML 1,000 ML IV SCH (03:30)
[2020-07-20] MEDS ORDERED: DC INTRASPINAL MORPHINE SCH (03:30)
[2020-07-20] MEDS ORDERED: MEASLES, MUMPS & RUBELLA VIRUS VIAL SQ ONE (04:00)
[2020-07-20] MEDS ORDERED: SENNA 8.6 MG TAB PO PRN (04:00)
[2020-07-20] MEDS ORDERED: BENZOCAINE 20% AER SPR 82.5 GM CAN EXT PRN (04:00)
[2020-07-20] MEDS ORDERED: MAGNESIUM HYDROXIDE SUSP 30 ML UDC PO PRN (04:00)
[2020-07-20] MEDS ORDERED: HYDROCORTISONE ACETATE 25 MG SUPP PR PRN (04:00)
[2020-07-20] MEDS ORDERED: SUPERCREAM 0.870% 15 GM JAR EXT PRN (04:00)
[2020-07-20] MEDS ORDERED: DIPHTHERIA/TETANUS/PERTUSSIS 0.5 ML SYR/VIAL IM ONE (04:00)
--- NOTE | 2020-07-20 04:09 | Anesthesiology Progress Note ---
Date of Service July 20, 2020 Anesthesia Post Procedure Vital Signs Vital Signs: Temp Pulse Resp BP Pulse Ox 07/20/20 04:06 89 100 07/20/20 04:02 91 H 133/76 07/20/20 04:01 89 99 07/20/20 02:26 18 07/20/20 02:25 93 H 95 07/20/20 02:20 91 H 96 07/20/20 02:16 108 H 86 L 07/20/20 02:15 93 H 99 07/20/20 02:14 91 H 135/79 07/20/20 02:10 90 99 07/20/20 02:05 93 H 97 07/20/20 02:00 97 H 18 96 07/20/20 01:58 94 H 141/84 H 07/20/20 01:55 94 H 96 07/20/20 01:50 96 H 99 07/20/20 01:45 93 H 99 07/20/20 01:43 102 H 142/85 H 07/20/20 01:40 134 H 100 07/20/20 01:35 96 H 98 07/20/20 01:33 97 H 83 L 07/20/20 01:30 106 H 18 100 07/20/20 01:28 95 H 132/94 87 L 07/20/20 01:25 97 H 92 07/20/20 01:20 92 H 97 07/20/20 01:15 91 H 97 07/20/20 01:13 92 H 138/74 07/20/20 01:10 90 97 07/20/20 01:05 89 97 07/20/20 01:00 91 H 18 98 07/20/20 00:58 86 135/65 07/20/20 00:55 92 H 98 07/20/20 00:50 91 H 98 07/20/20 00:45 90 98 07/20/20 00:43 90 135/64 07/20/20 00:40 90 98 07/20/20 00:35 93 H 98 07/20/20 00:34 99 H 89 L 07/20/20 00:30 36.9 C 99 H 18 96 07/20/20 00:28 102 H 140/71 07/20/20 00:25 105 H 97 07/20/20 00:20 99 H 97 07/20/20 00:15 93 H 94 07/20/20 00:14 95 H 139/68 07/20/20 00:10 86 95 07/20/20 00:05 82 96 07/20/20 00:00 99 H 18 95 07/19/20 23:58 90 137/70 07/19/20 23:55 83 95 07/19/20 23:50 91 H 95 07/19/20 23:45 89 94 07/19/20 23:43 93 H 137/71 07/19/20 23:40 102 H 93 07/19/20 23:35 90 93 07/19/20 23:30 94 H 18 94 07/19/20 23:28 92 H 134/64 88 L 07/19/20 23:25 37.0 C 100 H 18 92 07/19/20 23:22 37.0 C 18 07/19/20 23:21 100 H 94 07/19/20 23:20 92 H 94 07/19/20 23:15 97 H 93 07/19/20 23:13 95 H 138/78 94 07/19/20 23:10 96 H 97 07/19/20 23:05 92 H 95 07/19/20 23:00 80 18 95 07/19/20 22:59 89 94 07/19/20 22:58 91 H 136/68 07/19/20 22:55 89 95 07/19/20 22:54 87 94 07/19/20 22:50 89 95 07/19/20 22:48 96 H 94 07/19/20 22:45 98 H 97 07/19/20 22:43 132/69 07/19/20 22:40 91 H 96 07/19/20 22:35 98 H 98 07/19/20 22:30 89 18 96 07/19/20 22:28 82 123/61 07/19/20 22:25 84 97 07/19/20 22:20 87 97 07/19/20 22:15 88 97 07/19/20 22:13 96 H 128/73 07/19/20 22:10 89 98 07/19/20 22:06 36.9 C 07/19/20 22:05 86 97 07/19/20 22:00 94 H 18 98 07/19/20 21:58 91 H 123/70 07/19/20 21:55 78 97 07/19/20 21:50 79 97 07/19/20 21:45 85 98 07/19/20 21:43 88 120/71 07/19/20 21:40 86 96 07/19/20 21:35 89 98 07/19/20 21:30 99 H 18 98 07/19/20 21:27 100 H 121/69 07/19/20 21:25 96 H 97 07/19/20 21:22 97 H 128/74 07/19/20 21:20 89 96 07/19/20 21:16 90 130/68 07/19/20 21:15 96 H 96 07/19/20 21:14 93 H 127/66 07/19/20 21:13 92 H 94 07/19/20 21:12 105 H 136/70 07/19/20 21:10 97 H 97 07/19/20 21:09 100 H 125/75 07/19/20 21:07 99 H 133/70 07/19/20 21:06 100 H 130/66 07/19/20 21:05 108 H 96 07/19/20 21:04 102 H 134/63 07/19/20 21:03 108 H 85 L 07/19/20 21:02 103 H 130/79 07/19/20 21:00 100 H 18 96 07/19/20 20:58 111 H 138/87 07/19/20 20:57 120 H 94 07/19/20 20:55 105 H 95 07/19/20 20:50 98 H 96 07/19/20 20:45 101 H 83 L 07/19/20 20:40 105 H 95 07/19/20 20:35 130 H 97 07/19/20 20:30 107 H 18 98 07/19/20 20:25 109 H 98 07/19/20 20:20 137 H 98 07/19/20 20:15 123 H 99 07/19/20 20:10 95 H 99 07/19/20 20:08 36.3 C L 07/19/20 20:05 104 H 99 07/19/20 20:00 132 H 18 99 07/19/20 19:55 112 H 99 07/19/20 19:50 111 H 99 07/19/20 19:45 111 H 18 142/94 H 96 07/19/20 19:40 120 H 97 07/19/20 19:35 110 H 100 07/19/20 19:30 103 H 18 98 07/19/20 19:25 114 H 99 07/19/20 19:20 125 H 99 07/19/20 19:15 139 H 98 07/19/20 19:10 138 H 98 07/19/20 19:05 114 H 98 07/19/20 19:00 129 H 18 99 07/19/20 18:55 111 H 98 07/19/20 18:50 112 H 99 07/19/20 18:45 109 H 98 07/19/20 18:42 108 H 88 L 07/19/20 18:40 116 H 98 07/19/20 18:35 110 H 98 07/19/20 18:30 105 H 18 100 07/19/20 18:28 117 H 139/97 07/19/20 18:25 110 H 98 07/19/20 18:20 106 H 97 07/19/20 18:15 94 H 98 07/19/20 18:10 94 H 97 07/19/20 18:05 100 H 97 07/19/20 18:00 97 H 18 98 07/19/20 17:59 95 H 144/81 H 07/19/20 17:55 95 H 100 07/19/20 17:50 105 H 98 07/19/20 17:45 95 H 99 07/19/20 17:40 91 H 97 07/19/20 17:35 95 H 96 07/19/20 17:30 36.5 C 99 H 18 98 07/19/20 17:28 103 H 154/70 H 07/19/20 17:25 92 H 97 07/19/20 17:20 93 H 98 07/19/20 17:15 104 H 98 07/19/20 17:13 141/66 H 07/19/20 17:10 87 95 07/19/20 17:05 79 95 07/19/20 17:00 82 18 97 07/19/20 16:59 92 H 136/63 07/19/20 16:55 84 97 07/19/20 16:50 98 H 97 07/19/20 16:45 82 97 07/19/20 16:43 130/72 07/19/20 16:40 84 97 07/19/20 16:35 84 98 07/19/20 16:30 75 18 97 07/19/20 16:29 77 132/70 07/19/20 16:25 91 H 98 07/19/20 16:20 82 97 07/19/20 16:18 83 140/75 07/19/20 16:15 89 98 07/19/20 16:10 84 97 07/19/20 16:05 79 98 07/19/20 16:00 90 18 97 07/19/20 15:58 83 145/75 H 07/19/20 15:55 81 97 07/19/20 15:50 88 98 07/19/20 15:45 94 H 96 07/19/20 15:42 141/71 H 07/19/20 15:41 36.5 C 07/19/20 15:40 88 98 07/19/20 15:38 84 136/67 07/19/20 15:35 93 H 97 07/19/20 15:32 96 H 127/79 07/19/20 15:30 91 H 98 07/19/20 15:27 90 117/82 07/19/20 15:25 94 H 97 07/19/20 15:22 90 111/79 07/19/20 15:20 89 138/73 96 07/19/20 15:18 96 H 140/87 07/19/20 15:16 89 132/68 07/19/20 15:15 90 96 07/19/20 15:12 93 H 135/62 07/19/20 15:10 91 H 97 07/19/20 15:08 96 H 139/70 07/19/20 15:06 86 143/67 H 07/19/20 15:05 90 97 07/19/20 15:04 92 H 130/69 94 07/19/20 15:02 88 136/72 07/19/20 15:00 92 H 97 07/19/20 14:55 90 98 07/19/20 14:30 93 H 153/86 H 07/19/20 14:00 36.8 C 07/19/20 13:29 92 H 142/81 H 07/19/20 12:29 84 140/78 07/19/20 11:30 37.0 C 07/19/20 11:29 90 128/76 07/19/20 10:30 92 H 125/71 07/19/20 09:30 93 H 134/82 07/19/20 08:23 90 149/94 H 07/19/20 08:13 90 152/97 H 07/19/20 08:03 86 141/92 H 07/19/20 07:53 93 H 137/100 07/19/20 07:42 36.7 C 90 20 143/97 H 07/19/20 06:06 95 H 124/90 07/19/20 06:05 36.7 C 18 Pain Intensity Bilateral Abdomen: Pain Intensity: 3 Notes Mental Status: alert / awake / arousable Patient Amnestic to Procedure: No Nausea / Vomiting: adequately controlled Pain: adequately controlled Airway Patency, RR, SpO2: stable & adequate BP & HR: stable & adequate Hydration State: stable & adequate Neuraxial Anesthesia: was administered and sensory block is resolving Anesthetic Complications: no major complications apparent and Pt Satisfied with anesthetic care
--- NOTE | 2020-07-20 04:10 | Anesthesia Procedure Note ---
Date of Service July 20, 2020 Anesthesia Post Epidural Note Vital Signs Vital Signs: Temp Pulse Resp BP Pulse Ox 36.9 C 89 18 133/76 100 07/20/20 00:30 07/20/20 04:06 07/20/20 02:26 07/20/20 04:02 07/20/20 04:06 Pain Intensity Bilateral Abdomen: Pain Intensity: 3 Notes Mental Status: alert / awake / arousable Patient Amnestic to Procedure: No Nausea / Vomiting: adequately controlled Pain: adequately controlled Airway Patency, RR, SpO2: stable & adequate BP & HR: stable & adequate Hydration State: stable & adequate Neuraxial Anesthesia: was administered and sensory block is resolving Anesthetic Complications: no major complications apparent and Pt Satisfied with anesthetic care Epidural: Removed without complications, With tip intact and See Notes Notes: bruising noted at skin insertion site. no active bleeding. no back pain. nontender
[2020-07-20] MEDS: KETOROLAC 30 MG/ML VIAL IV PRN ×2 (04:44→11:59)
--- NOTE | 2020-07-20 06:44 | Operative Report (OR) ---
DATE OF OPERATION: 07/20/2020 PREOPERATIVE DIAGNOSES: The patient is a 34-year-old G2, P1-0-0-1 at 38 weeks and 4 days of gestation, admitted for induction of labor on 07/18/2020 for history of chronic hypertension, gestational diabetes, on insulin, morbid obesity, and arrest of descent in second stage of labor despite pushing over 3 hours. POSTOPERATIVE DIAGNOSES: The patient is a 34-year-old G2, P1-0-0-1 at 38 weeks and 4 days of gestation, admitted for induction of labor on 07/18/2020 for history of chronic hypertension, gestational diabetes, on insulin, morbid obesity, and arrest of descent in second stage of labor despite pushing over 3 hours. PROCEDURE: Primary low transverse with Pfannenstiel skin incision. SURGEON: Candida Mcgovern MD SERVICE DESK DIRECTOR: Dr. Arvizu. ESTIMATED BLOOD LOSS: 650 mL. DRAINS: Lara catheter drained 200 mL of urine. ANESTHESIA: Labor epidural. ANESTHESIOLOGIST: Dr. Ramirez. COMPLICATIONS: None. FINDINGS: Baby was a viable male infant, in cephalic presentation/ deep in the vagina and delivered at 3:00 a.m. Apgars were 9/9. The weight was 3895 grams. Maternal findings, normal uterus, fallopian tubes and ovaries. DESCRIPTION OF PROCEDURE: The patient was taken to the operating room where epidural anesthesia was found to be adequate. She was placed in dorsal supine position with a leftward tilt. She was prepared and draped in usual sterile fashion. Pfannenstiel skin incision was made and carried through to the underlying layer of fascia with the Bovie. Fascia was incised in the midline and incision was extended laterally with the help of Orellana scissors. Lower aspect of the fascial incision was then grasped with 2 Olesya clamps, elevated, underlying rectus muscles were dissected off sharply with Orellana scissors. Upper aspect of the fascial incision was then grasped with 2 Olesya clamps, elevated. Underlying rectus muscles were dissected off sharply with Orellana scissors. The rectus muscles were in the midline. Peritoneum was entered bluntly with fingers. Peritoneal incision was extended superiorly and inferiorly with good visualization of the bladder. Bladder blade was inserted. Vesicouterine peritoneum was identified, grasped with pickups, and entered sharply with Metzenbaum scissors. Bladder flap was created digitally and bladder blade was reinserted. The lower uterine segment was incised in transverse fashion. Incision was extended laterally with the help of fingers. Membranes were ruptured. Clear fluid was obtained. The loops of cord came out of the incision and baby's head was found in the vagina, brought up to the incision, delivered without difficulty. Shoulders were delivered with minimal traction. Baby was dried. Mouth and nose were suctioned. Cord was clamped x2 and cut at 1-minute delay and baby was handed to the waiting pediatric team. Cord blood was obtained. There was a true knot on the cord. Placenta was delivered manually as intact and complete. Uterus was exteriorized, cleared of all clots and debris. Uterine incision was repaired with 0 Vicryl in a running locked fashion. A second imbricating layer was placed with 0 Vicryl in a running locked fashion. Excellent hemostasis was achieved. Posterior cul-de-sac was irrigated with warm normal saline and suctioned. Uterus was returned to the abdomen. The pelvis was irrigated with warm normal saline and suctioned and incision was hemostatic. Parietal peritoneum was reapproximated with 3-0 Vicryl in a running fashion. Rectus muscles were brought together with the same suture in a running fashion. Under the fascia over and the rectus muscles were hemostatic. Rectus fascia was reapproximated with #1 Vicryl in a running fashion. Subcuticular fat tissue was brought together with 2-0 plain catgut in a running fashion. Skin was closed with 4-0 Monocryl in a subcuticular fashion. The patient tolerated the procedure well. Sponge, lap, needle count was correct x3. No complications happened. I was and Dr. Cifuentes was present during whole procedure. The patient received 3 grams of cefazolin before surgery and 500 mg of azithromycin during procedure. She was taken to recovery room in stable condition. I attest to the content of the Intraoperative Record and any orders documented therein. Any exceptions are noted below. KHADAR
[2020-07-20] MEDS: OXYTOCIN 20 UNITS in LACTATED RINGER'S 1,000 ML IV SCH ×2 (07:07→15:57)
[2020-07-20] MEDS: FERROUS SULFATE 325 MG TAB PO SCH (08:29)
[2020-07-20] MEDS: SIMETHICONE 80 MG CHEW PO SCH ×4 (08:29→20:33)
[2020-07-20] MEDS: PRENATAL VITAMIN 1 TAB PO SCH (08:29)
[2020-07-20] MEDS: DOCUSATE SODIUM 100 MG CAP PO SCH ×2 (08:29→20:33)
[2020-07-20] MEDS ORDERED: ceFAZolin 2000MG 2,000 MG/15 ML SYR IV ONE (11:00)
[2020-07-20] MEDS ORDERED: PROMETHAZINE HCL 25 MG in SODIUM CHLORIDE 0.9% 50 ML IV PRN (21:26)
[2020-07-20] MEDS ORDERED: KETOROLAC 30 MG/ML VIAL IV PRN (21:26)
[2020-07-20] MEDS ORDERED: MEPERIDINE HCL 50 MG/ML CARP IV PRN (21:26)
[2020-07-20] MEDS ORDERED: diphenhydrAMINE Capsule 25 MG CAP PO PRN (21:26)
[2020-07-21] MEDS: IBUPROFEN 600 MG TAB PO PRN ×5 (02:47→21:04)
[2020-07-21] MEDS: oxyCODONE/ACETAMINOPHEN 5mg/325mg TAB PO PRN ×5 (02:47→21:03)
[2020-07-21 06:18] LABS: Basophils # (auto) 0.01 K/uL (0-0.2); Basophils % (auto) 0.1 %; Eosinophils # (auto) 0.06 K/uL (0-0.5); Eosinophils % (auto) 0.4 %; Hematocrit (blood only) 31.7 % (37-47); Hemoglobin 10.5 g/dL (12.0-16.0); Immature Granulocytes # (auto) 0.02 K/uL (0.00-0.02); Immature Granulocytes % (auto) 0.1 %; Lymphocytes # (auto) 1.73 K/uL (1.2-3.4); Lymphocytes % (auto) 12.8 %; Mean Corpuscular Hemoglobin 27.8 pg (25-34); Mean Corpuscular Hgb Conc 33.1 g/dL (32-36); Mean Corpuscular Volume 83.9 fL (80-100); Monocytes # (auto) 0.85 K/uL (0.11-0.59); Monocytes % (auto) 6.3 %; Neutrophils # (auto) 10.87 K/uL (1.4-6.5); Neutrophils % (auto) 80.3 %; Platelet Count 271 K/uL (130-400); RDW Coefficient of Variation 14.8 % (11.5-14.5); RDW Standard Deviation 45.4 fL (36.4-46.3); Red Blood Count 3.78 M/uL (4.2-5.4); White Blood Count 13.54 K/uL (4.8-10.8)
[2020-07-21] MEDS: FERROUS SULFATE 325 MG TAB PO SCH (07:50)
[2020-07-21] MEDS: DOCUSATE SODIUM 100 MG CAP PO SCH ×2 (07:50→21:03)
[2020-07-21] MEDS: SIMETHICONE 80 MG CHEW PO SCH ×4 (07:50→21:03)
[2020-07-21] MEDS: PRENATAL VITAMIN 1 TAB PO SCH (07:50)
[2020-07-21] MEDS: NIFEdipine EXTENDED REL 30 MG TABCR PO SCH (07:51)
--- NOTE | 2020-07-21 11:23 | Obstetrical Progress Note ---
Date of Service July 21, 2020 Assessment & Plan Admission and Anticipated Discharge Date Admission Date: July 18, 2020 Physical Exam Physical Exam: abdomen soft and non tender passing flatus no calf tenderness ambulating well vaginal bleeding scant hgb 10.3 Results & Data ([facility]) Vital Signs (Past 12 Hours) Vital Signs Temp Pulse Resp BP Pulse Ox 07/21/20 07:40 36.4 C L 76 18 113/78 98 07/21/20 03:30 36.7 C 93 H 18 120/83 07/20/20 23:55 36.6 C 88 18 132/89 97
[2020-07-21] MEDS ORDERED: bisacodyL 5 MG TABEC PO SCH (20:00)
[2020-07-22] MEDS: oxyCODONE/ACETAMINOPHEN 5mg/325mg TAB PO PRN ×3 (03:40→15:26)
[2020-07-22] MEDS: IBUPROFEN 600 MG TAB PO PRN ×3 (03:40→15:26)
[2020-07-22] MEDS ORDERED: bisacodyL 10 MG SUPP PR PRN (04:00)
--- NOTE | 2020-07-22 07:49 | Obstetrical Progress Note ---
Date of Service July 22, 2020 Assessment & Plan Admission and Anticipated Discharge Date Admission Date: July 18, 2020 Subjective Patient is seen and examined. She feels well, no complaints. Pain is under control with oral meds. Ambulating without dizziness Voiding without difficulty Tolerating regular diet with out N&V Flatus + BM neg Bleeding is minimal No fever/ chills/ CP/ SOB/ N&V/ Leg pain Breast and bottle feeding without problems Vital Signs Temp Pulse Resp BP Pulse Ox 07/21/20 23:00 36.6 C 85 20 138/90 99 07/21/20 20:00 36.4 C L 102 H 20 147/100 H 99 07/21/20 15:05 36.8 C 90 20 129/85 98 Lab Results 07/18/20 07/18/20 07/18/20 Range/Units 10:19 10:19 10:19 WBC 11.29 H (4.8-10.8) K/uL RBC 4.61 (4.2-5.4) M/uL Hgb 12.6 (12.0-16.0) g/dL Hct 38.3 (37-47) % MCV 83.1 (80-100) fL MCH 27.3 (25-34) pg MCHC 32.9 (32-36) g/dL RDW Std Deviation 43.3 (36.4-46.3) fL RDW Coeff of Fatoumata 14.3 (11.5-14.5) % Plt Count 307 (130-400) K/uL MPV 9.0 (7.4-10.4) fL Immature Gran % (Auto) % Neut % (Auto) % Lymph % (Auto) % Grand % (Auto) % Eos % (Auto) % Baso % (Auto) % Neut # (Auto) (1.4-6.5) K/uL Lymph # (Auto) (1.2-3.4) K/uL Grand # (Auto) (0.11-0.59) K/uL Eos # (Auto) (0-0.5) K/uL Baso # (Auto) (0-0.2) K/uL Immature Gran # (Auto) (0.00-0.02) K/uL Sodium (136-145) mmol/L Potassium (3.5-5.1) mmol/L Chloride (98-107) mmol/L Carbon Dioxide (21-32) mmol/L Anion Gap (3-11) BUN (7-18) mg/dl Creatinine (0.6-1.2) mg/dl Est Cr Clr Drug Dosing ml/min Est GFR ( Amer) Est GFR (Non-Af Amer) BUN/Creatinine Ratio (10-20) Glucose (70-99) mg/dl POC Glucose (70-99) mg/dl Calcium (8.5-10.1) mg/dl Total Bilirubin (0.2-1) mg/dl AST (15-37) U/L ALT (12-78) U/L Alkaline Phosphatase (45-117) U/L Total Protein (6.4-8.2) gm/dl Albumin (3.4-5.0) gm/dl Globulin (2.5-4.0) gm/dl Albumin/Globulin Ratio (0.9-2) Blood Type A Positive Cancelled 07/18/20 07/18/20 07/18/20 Range/Units 10:41 13:48 17:15 WBC (4.8-10.8) K/uL RBC (4.2-5.4) M/uL Hgb (12.0-16.0) g/dL Hct (37-47) % MCV (80-100) fL MCH (25-34) pg MCHC (32-36) g/dL RDW Std Deviation (36.4-46.3) fL RDW Coeff of Fatoumata (11.5-14.5) % Plt Count (130-400) K/uL MPV (7.4-10.4) fL Immature Gran % (Auto) % Neut % (Auto) % Lymph % (Auto) % Grand % (Auto) % Eos % (Auto) % Baso % (Auto) % Neut # (Auto) (1.4-6.5) K/uL Lymph # (Auto) (1.2-3.4) K/uL Grand # (Auto) (0.11-0.59) K/uL Eos # (Auto) (0-0.5) K/uL Baso # (Auto) (0-0.2) K/uL Immature Gran # (Auto) (0.00-0.02) K/uL Sodium (136-145) mmol/L Potassium (3.5-5.1) mmol/L Chloride (98-107) mmol/L Carbon Dioxide (21-32) mmol/L Anion Gap (3-11) BUN (7-18) mg/dl Creatinine (0.6-1.2) mg/dl Est Cr Clr Drug Dosing ml/min Est GFR ( Amer) Est GFR (Non-Af Amer) BUN/Creatinine Ratio (10-20) Glucose (70-99) mg/dl POC Glucose 80 114 H 76 (70-99) mg/dl Calcium (8.5-10.1) mg/dl Total Bilirubin (0.2-1) mg/dl AST (15-37) U/L ALT (12-78) U/L Alkaline Phosphatase (45-117) U/L Total Protein (6.4-8.2) gm/dl Albumin (3.4-5.0) gm/dl Globulin (2.5-4.0) gm/dl Albumin/Globulin Ratio (0.9-2) Blood Type 07/18/20 07/19/20 07/19/20 Range/Units 21:32 07:45 08:36 WBC 10.78 (4.8-10.8) K/uL RBC 4.43 (4.2-5.4) M/uL Hgb 12.4 (12.0-16.0) g/dL Hct 36.7 L (37-47) % MCV 82.8 (80-100) fL MCH 28.0 (25-34) pg MCHC 33.8 (32-36) g/dL RDW Std Deviation 42.8 (36.4-46.3) fL RDW Coeff of Fatoumata 14.2 (11.5-14.5) % Plt Count 301 (130-400) K/uL MPV 9.1 (7.4-10.4) fL Immature Gran % (Auto) 0.4 % Neut % (Auto) 76.5 % Lymph % (Auto) 17.8 % Grand % (Auto) 5.0 % Eos % (Auto) 0.2 % Baso % (Auto) 0.1 % Neut # (Auto) 8.25 H (1.4-6.5) K/uL Lymph # (Auto) 1.92 (1.2-3.4) K/uL Grand # (Auto) 0.54 (0.11-0.59) K/uL Eos # (Auto) 0.02 (0-0.5) K/uL Baso # (Auto) 0.01 (0-0.2) K/uL Immature Gran # (Auto) 0.04 H (0.00-0.02) K/uL Sodium (136-145) mmol/L Potassium (3.5-5.1) mmol/L Chloride (98-107) mmol/L Carbon Dioxide (21-32) mmol/L Anion Gap (3-11) BUN (7-18) mg/dl Creatinine (0.6-1.2) mg/dl Est Cr Clr Drug Dosing ml/min Est GFR ( Amer) Est GFR (Non-Af Amer) BUN/Creatinine Ratio (10-20) Glucose (70-99) mg/dl POC Glucose 89 92 (70-99) mg/dl Calcium (8.5-10.1) mg/dl Total Bilirubin (0.2-1) mg/dl AST (15-37) U/L ALT (12-78) U/L Alkaline Phosphatase (45-117) U/L Total Protein (6.4-8.2) gm/dl Albumin (3.4-5.0) gm/dl Globulin (2.5-4.0) gm/dl Albumin/Globulin Ratio (0.9-2) Blood Type 07/19/20 07/19/20 07/19/20 Range/Units 08:36 11:31 15:38 WBC (4.8-10.8) K/uL RBC (4.2-5.4) M/uL Hgb (12.0-16.0) g/dL Hct (37-47) % MCV (80-100) fL MCH (25-34) pg MCHC (32-36) g/dL RDW Std Deviation (36.4-46.3) fL RDW Coeff of Fatoumata (11.5-14.5) % Plt Count (130-400) K/uL MPV (7.4-10.4) fL Immature Gran % (Auto) % Neut % (Auto) % Lymph % (Auto) % Grand % (Auto) % Eos % (Auto) % Baso % (Auto) % Neut # (Auto) (1.4-6.5) K/uL Lymph # (Auto) (1.2-3.4) K/uL Grand # (Auto) (0.11-0.59) K/uL Eos # (Auto) (0-0.5) K/uL Baso # (Auto) (0-0.2) K/uL Immature Gran # (Auto) (0.00-0.02) K/uL Sodium 137 (136-145) mmol/L Potassium 3.9 (3.5-5.1) mmol/L Chloride 107 (98-107) mmol/L Carbon Dioxide 18 L (21-32) mmol/L Anion Gap 11.0 (3-11) BUN 8 (7-18) mg/dl Creatinine 0.60 (0.6-1.2) mg/dl Est Cr Clr Drug Dosing 189.7 ml/min Est GFR ( Amer) 138.8 Est GFR (Non-Af Amer) 119.8 BUN/Creatinine Ratio 14.1 (10-20) Glucose 85 (70-99) mg/dl POC Glucose 80 78 (70-99) mg/dl Calcium 9.3 (8.5-10.1) mg/dl Total Bilirubin 0.4 (0.2-1) mg/dl AST 22 (15-37) U/L ALT 24 (12-78) U/L Alkaline Phosphatase 75 (45-117) U/L Total Protein 7.6 (6.4-8.2) gm/dl Albumin 2.7 L (3.4-5.0) gm/dl Globulin 4.9 H (2.5-4.0) gm/dl Albumin/Globulin Ratio 0.6 L (0.9-2) Blood Type 07/19/20 07/19/20 07/19/20 Range/Units 16:37 17:39 21:59 WBC (4.8-10.8) K/uL RBC (4.2-5.4) M/uL Hgb (12.0-16.0) g/dL Hct (37-47) % MCV (80-100) fL MCH (25-34) pg MCHC (32-36) g/dL RDW Std Deviation (36.4-46.3) fL RDW Coeff of Fatoumata (11.5-14.5) % Plt Count (130-400) K/uL MPV (7.4-10.4) fL Immature Gran % (Auto) % Neut % (Auto) % Lymph % (Auto) % Grand % (Auto) % Eos % (Auto) % Baso % (Auto) % Neut # (Auto) (1.4-6.5) K/uL Lymph # (Auto) (1.2-3.4) K/uL Grand # (Auto) (0.11-0.59) K/uL Eos # (Auto) (0-0.5) K/uL Baso # (Auto) (0-0.2) K/uL Immature Gran # (Auto) (0.00-0.02) K/uL Sodium (136-145) mmol/L Potassium (3.5-5.1) mmol/L Chloride (98-107) mmol/L Carbon Dioxide (21-32) mmol/L Anion Gap (3-11) BUN (7-18) mg/dl Creatinine (0.6-1.2) mg/dl Est Cr Clr Drug Dosing ml/min Est GFR ( Amer) Est GFR (Non-Af Amer) BUN/Creatinine Ratio (10-20) Glucose (70-99) mg/dl POC Glucose 77 77 112 H (70-99) mg/dl Calcium (8.5-10.1) mg/dl Total Bilirubin (0.2-1) mg/dl AST (15-37) U/L ALT (12-78) U/L Alkaline Phosphatase (45-117) U/L Total Protein (6.4-8.2) gm/dl Albumin (3.4-5.0) gm/dl Globulin (2.5-4.0) gm/dl Albumin/Globulin Ratio (0.9-2) Blood Type 07/19/20 07/20/20 07/20/20 Range/Units 23:16 00:42 02:09 WBC (4.8-10.8) K/uL RBC (4.2-5.4) M/uL Hgb (12.0-16.0) g/dL Hct (37-47) % MCV (80-100) fL MCH (25-34) pg MCHC (32-36) g/dL RDW Std Deviation (36.4-46.3) fL RDW Coeff of Fatoumata (11.5-14.5) % Plt Count (130-400) K/uL MPV (7.4-10.4) fL Immature Gran % (Auto) % Neut % (Auto) % Lymph % (Auto) % Grand % (Auto) % Eos % (Auto) % Baso % (Auto) % Neut # (Auto) (1.4-6.5) K/uL Lymph # (Auto) (1.2-3.4) K/uL Grand # (Auto) (0.11-0.59) K/uL Eos # (Auto) (0-0.5) K/uL Baso # (Auto) (0-0.2) K/uL Immature Gran # (Auto) (0.00-0.02) K/uL Sodium (136-145) mmol/L Potassium (3.5-5.1) mmol/L Chloride (98-107) mmol/L Carbon Dioxide (21-32) mmol/L Anion Gap (3-11) BUN (7-18) mg/dl Creatinine (0.6-1.2) mg/dl Est Cr Clr Drug Dosing ml/min Est GFR ( Amer) Est GFR (Non-Af Amer) BUN/Creatinine Ratio (10-20) Glucose (70-99) mg/dl POC Glucose 106 H 109 H 106 H (70-99) mg/dl Calcium (8.5-10.1) mg/dl Total Bilirubin (0.2-1) mg/dl AST (15-37) U/L ALT (12-78) U/L Alkaline Phosphatase (45-117) U/L Total Protein (6.4-8.2) gm/dl Albumin (3.4-5.0) gm/dl Globulin (2.5-4.0) gm/dl Albumin/Globulin Ratio (0.9-2) Blood Type 07/21/20 Range/Units 06:00 WBC 13.54 H (4.8-10.8) K/uL RBC 3.78 L (4.2-5.4) M/uL Hgb 10.5 L (12.0-16.0) g/dL Hct 31.7 L (37-47) % MCV 83.9 (80-100) fL MCH 27.8 (25-34) pg MCHC 33.1 (32-36) g/dL RDW Std Deviation 45.4 (36.4-46.3) fL RDW Coeff of Fatoumata 14.8 H (11.5-14.5) % Plt Count 271 (130-400) K/uL MPV 9.0 (7.4-10.4) fL Immature Gran % (Auto) 0.1 % Neut % (Auto) 80.3 % Lymph % (Auto) 12.8 % Grand % (Auto) 6.3 % Eos % (Auto) 0.4 % Baso % (Auto) 0.1 % Neut # (Auto) 10.87 H (1.4-6.5) K/uL Lymph # (Auto) 1.73 (1.2-3.4) K/uL Grand # (Auto) 0.85 H (0.11-0.59) K/uL Eos # (Auto) 0.06 (0-0.5) K/uL Baso # (Auto) 0.01 (0-0.2) K/uL Immature Gran # (Auto) 0.02 (0.00-0.02) K/uL Sodium (136-145) mmol/L Potassium (3.5-5.1) mmol/L Chloride (98-107) mmol/L Carbon Dioxide (21-32) mmol/L Anion Gap (3-11) BUN (7-18) mg/dl Creatinine (0.6-1.2) mg/dl Est Cr Clr Drug Dosing ml/min Est GFR ( Amer) Est GFR (Non-Af Amer) BUN/Creatinine Ratio (10-20) Glucose (70-99) mg/dl POC Glucose (70-99) mg/dl Calcium (8.5-10.1) mg/dl Total Bilirubin (0.2-1) mg/dl AST (15-37) U/L ALT (12-78) U/L Alkaline Phosphatase (45-117) U/L Total Protein (6.4-8.2) gm/dl Albumin (3.4-5.0) gm/dl Globulin (2.5-4.0) gm/dl Albumin/Globulin Ratio (0.9-2) Blood Type PE: General: Alert, orientedx3, NAD CVS: S1S2 RRR Lungs; CTAB Abd: soft, NT, ND, BS+, fundus firm, below Umbilicus Incision/ Dressing: Clean, dry, intact Perineum intact, Lochia rubra minimal Ext; NT, no edema AP: 34 yo s/p Primary C Section, pod# 2 VSS Afebrile doing well Continue routine postop care Encourage ambulation, PO intake All questions were answered D/C home if baby will be discharged Results & Data ([facility]) Vital Signs (Past 12 Hours) Vital Signs Temp Pulse Resp BP Pulse Ox 07/21/20 23:00 36.6 C 85 20 138/90 99 07/21/20 20:00 36.4 C L 102 H 20 147/100 H 99
[2020-07-22 08:02] LABS: Hematocrit (blood only) 29.5 % (37-47); Hemoglobin 9.7 g/dL (12.0-16.0)
[2020-07-22] MEDS: SIMETHICONE 80 MG CHEW PO SCH ×4 (08:33→21:00)
[2020-07-22] MEDS: PRENATAL VITAMIN 1 TAB PO SCH (08:33)
[2020-07-22] MEDS: DOCUSATE SODIUM 100 MG CAP PO SCH ×2 (08:33→21:00)
[2020-07-22] MEDS: NIFEdipine EXTENDED REL 30 MG TABCR PO SCH (08:33)
[2020-07-22] MEDS: AMOXICILLIN/CLAVULANATE 875 MG TAB PO SCH ×2 (08:33→17:44)
[2020-07-22] MEDS: FERROUS SULFATE 325 MG TAB PO SCH (08:33)
[2020-07-23] MEDS: IBUPROFEN 600 MG TAB PO PRN ×4 (00:44→21:07)
[2020-07-23] MEDS: oxyCODONE/ACETAMINOPHEN 5mg/325mg TAB PO PRN ×4 (00:45→21:07)
[2020-07-23 05:32] LABS: Basophils # (auto) 0.02 K/uL (0-0.2); Basophils % (auto) 0.2 %; Eosinophils # (auto) 0.15 K/uL (0-0.5); Eosinophils % (auto) 1.6 %; Hematocrit (blood only) 29.4 % (37-47); Hemoglobin 9.9 g/dL (12.0-16.0); Immature Granulocytes # (auto) 0.03 K/uL (0.00-0.02); Immature Granulocytes % (auto) 0.3 %; Lymphocytes # (auto) 2.97 K/uL (1.2-3.4); Lymphocytes % (auto) 31.6 %; Mean Corpuscular Hgb Conc 33.7 g/dL (32-36); Mean Corpuscular Volume 83.3 fL (80-100); Mean Platelet Volume 8.5 fL (7.4-10.4); Monocytes # (auto) 0.57 K/uL (0.11-0.59); Monocytes % (auto) 6.1 %; Neutrophils # (auto) 5.66 K/uL (1.4-6.5); Neutrophils % (auto) 60.2 %; Platelet Count 285 K/uL (130-400); RDW Coefficient of Variation 14.6 % (11.5-14.5); RDW Standard Deviation 44.6 fL (36.4-46.3); Red Blood Count 3.53 M/uL (4.2-5.4)
[2020-07-23] MEDS: FERROUS SULFATE 325 MG TAB PO SCH (08:44)
[2020-07-23] MEDS: DOCUSATE SODIUM 100 MG CAP PO SCH ×2 (08:44→21:06)
[2020-07-23] MEDS: PRENATAL VITAMIN 1 TAB PO SCH (08:44)
[2020-07-23] MEDS: NIFEdipine EXTENDED REL 30 MG TABCR PO SCH (08:44)
[2020-07-23] MEDS: SIMETHICONE 80 MG CHEW PO SCH ×4 (08:44→21:07)
[2020-07-23] MEDS: AMOXICILLIN/CLAVULANATE 875 MG TAB PO SCH ×2 (08:45→17:48)
--- NOTE | 2020-07-30 09:23 | Discharge Summary (DS) ---
DETAILS OF ADMISSION: The patient is a 34-year-old G2, P1-0-0-1 at 38 weeks and 2 days of gestation, who was admitted for induction of labor due to history of chronic hypertension and gestational diabetes, on insulin and obesity. She was admitted on 07/18/[address] Cifuentes. She received Cervidil intravaginal and then one dose of p.o. Cytotec for cervical ripening and she started to have contractions and when I came in the morning on 07/19/2020, her cervix was 3 cm dilated, 50% effaced, head was at a high station. Her vital signs were stable, afebrile. heart rate was category 1. She was placed on Procardia for blood pressure and she was started on low dose Pitocin and planned AROM. She received Pitocin all day and she progressed to full dilatation. She desired to push. She pushed about 3 hours and then no change in station. She rested for a few minutes and then started pushing again. At the time, she pushed through, there was a heart rate deceleration and the header stating station of -3 and with a large caput. After discussion with the patient, recommended to have primary due to arrest in descent. The patient understood this is a major surgery and understood the risks of surgery and signed an informed consent. On 07/20/2020, at 3:00 a.m., patient delivered a viable male infant, Apgars were 9/9 and her surgery was primary low transverse with Pfannenstiel skin incision. No complications happened. See dictated op note for details. On postop period, the patient was doing well. Vital signs stable, afebrile. Urine output was adequate. Her abdomen was soft, nontender. She was passing gas. Her hemoglobin was 10.3. On postop day #2, the patient was doing well. Vital signs stable, afebrile. Pain was under control with oral medications, ambulating without dizziness, voiding without difficulty, tolerating regular diet. She was passing gas. Bleeding was minimal. She was breast and bottle feeding. Vital signs stable, afebrile. Urine output was good. Her H and H was 12.4/36.7 and a repeat H and H was 10.5/31.7. Her physical exam was unremarkable. Incision was clean, dry and intact. Abdomen was soft, nontender, nondistended. Fundus was firm below the umbilicus. Bleeding was minimal. The patient desired to be discharged home on postop day #2. Discharge instructions were given. Prescriptions were written for pain. She is to be seen in the office for incision check. All questions were answered.
== END 2020-07-23 22:35 | disposition home or self-care (01) | DRG 788 ==
LOC: 4S1 07:33 → 4S2 07-20 06:40